=== PATIENT | female | born 1950 | race Caucasian/White ===

== ENCOUNTER 2020-06-11 11:08 | Inpatient (IN) ==
[2020-06-11] MEDS ORDERED: 0.9 % SODIUM CHLORIDE 1,000 ML IV ONE (11:29)
[2020-06-11] MEDS ORDERED: IPRATROPIUM/ALBUTEROL 3 ML AMPUL.NEB NEB ONE (11:29)
[2020-06-11] MEDS ORDERED: HYDROmorphone 0.5 MG/0.5 ML SYRINGE IV ONE ×2 (11:29→13:04)
[2020-06-11] MEDS ORDERED: BENZONATATE 100 MG CAPSULE PO ONE (11:29)
[2020-06-11] MEDS ORDERED: methylPREDNISolone SOD SUCC 125 MG/2 ML VIAL IV ONE (11:29)
--- NOTE | 2020-06-11 11:34 | Emergency Department Note ---
SOB HPI General Chief Complaint: Shortness of Breath/Dyspnea Stated Complaint: SOB Time Seen by Provider: 06/11/20 11:17 Source: patient Mode of arrival: wheelchair Limitations: no limitations History of Present Illness HPI Narrative: Narrative: 70-year-old female patient presents emergency department chief complaint of respiratory distress x3 days. Patient has known history of COPD and is currently prescribed nebulizer that she has been taking a bit more frequently. She also mentions she takes daily prednisone. She denies any known exposure to the novel coronavirus. She denies any other sick contacts at home. Patient also complains of exquisite low back pain. She mentions falling approximately 3 weeks ago. She tells me she was evaluated in the emergency department and was told she fractured "the big bone in my spine". However, I do not have a note or imaging to review. ROS: Denies systemic illness, fever, sweats, chills. Denies headaches, tinnitus, or vision changes. Admits to runny nose, sinus congestion, and productive cough. Denies retrosternal chest pain or palpitations. Denies abdominal pain, nausea, vomiting, or diarrhea. Denies dysuria, hematuria, urinary frequency, or urinary urgency. Admits to generalized weakness. Related Data Home Medications Medication Instructions Recorded Confirmed albuterol sulfate 90 mcg/actuation 2 puff INHALATION .Q6-8H PRN g 04/09/17 04/18/17 aerosol inhaler levothyroxine 200 mcg tablet 200 mcg PO QDAY 04/09/17 04/18/17 lovastatin 20 mg tablet 20 mg PO QPM 04/09/17 04/18/17 paroxetine HCl 10 mg tablet 10 mg PO QDAY 04/09/17 04/18/17 paroxetine HCl 40 mg tablet 40 mg PO QDAY 04/09/17 04/18/17 Previous Rx's Medication Instructions Recorded imipramine HCl 25 mg tablet 25 mg PO BID #60 tab 04/18/17 Allergies Allergy/AdvReac Type Severity Reaction Status Date / Time No Known Drug Allergies Allergy Verified 06/11/20 11:08 Review of Systems ROS ROS Narrative: Narrative: All systems ED: reviewed and negative except as stated. [facility] Narrative Patient History Narrative: Narrative: Medical/Surgical/Family History All Active Problems (Updated 06/11/20 @ 14:38 by Jim Owens PA-C) Acute respiratory distress (Acute) Bilateral pneumonia (Acute) Low back pain (Acute) COPD (chronic obstructive pulmonary disease) (Acute) Depression (Chronic) Abnormal mammogram (Chronic) Epidermoid cyst (Chronic) 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) Upper respiratory infection (Chronic) Viral pharyngitis (Chronic) Carpal tunnel syndrome (Chronic) Chronic depression (Chronic) Depressive disorder (Chronic) Obesity (Chronic) Mixed hyperlipidemia (Chronic) Vitamin D deficiency (Chronic) Hypothyroidism (Chronic) Herpes simplex of female genitalia (Chronic) Viral gastroenteritis (Chronic) Urinary incontinence (Chronic) Medical History (Updated 06/11/20 @ 14:38 by Jim Owens PA-C) Abnormal mammogram (Chronic) Carpal tunnel syndrome (Chronic) CHF (congestive heart failure) (Acute) Chronic depression (Chronic) COPD (chronic obstructive pulmonary disease) (Acute) Depression (Chronic) Depressive disorder (Chronic) Epidermoid cyst (Chronic) hand Fibrosis of lung (Chronic) Herpes simplex of female genitalia (Chronic) Hypothyroidism (Chronic) Interstitial pneumonia (Chronic) Mixed hyperlipidemia (Chronic) Obesity (Chronic) Pulmonary fibrosis (Acute) Upper respiratory infection (Chronic) Urinary incontinence (Chronic) Viral gastroenteritis (Chronic) Viral pharyngitis (Chronic) Vitamin D deficiency (Chronic) Surgical History History of cholecystectomy (Chronic) S/P hysterectomy (Acute) S/P tonsillectomy (Acute) Family History Father Stroke Mother Malignant neoplastic disease ovarian and blood Hypertensive disorder Other Kidney stone Social History Smoking Status: Former smoker Alcohol Intake Frequency: does not drink Substance Use: does not use Exam Narrative Narrative: Narrative: General Limitations: no limitations General appearance: Present other (Well-developed, well-nourished, acutely ill- appearing, obese 70-year-old female patient laying semirecumbent on the [facility] room gurney. She is in obvious respiratory distress. She is speaking in broken sentences. She is tachypneic with respiratory rate of 25. No nasal flaring. No accessory muscle use. She is afebrile, tachycardic with a heart rate of 103, her blood pressure is normal. SPO2 is normal 95%. Patient is on 2 L of oxygen via nasal cannula.) Head Head: Present normocephalic Eye Eye: Present normal appearance, PERRL and EOMI; Absent scleral icterus and conjunctival injection ENT ENT: Present normal oropharynx and mucous membranes moist Neck Neck: Present trachea midline; Absent lymphadenopathy and thyromegaly Chest Chest: Present symmetric chest wall rise Respiratory Respiratory: Present respiratory distress, wheezes, prolonged expiratory phase and decreased breath sounds (Considerable inspiratory and expiratory rhonchi and wheezing heard throughout the chest.); Absent normal lung sounds bilaterally, rales/crackles, stridor and accessory muscle use Cardiovascular Cardiovascular: Present regular rate and normal rhythm; Absent systolic murmur and diastolic murmur Adbominal Abdominal: Present soft; Absent distention, tenderness, guarding, rebound, rigidity, organomegaly and mass Extremities Extremities: Present normal inspection, full ROM and normal capillary refill; Absent pedal edema Back Back: Present normal inspection, full ROM and L-S tenderness Neurological Neurological: Present alert and oriented X3 Psychiatric Psychiatric: Present normal affect and anxious Skin Skin: Present warm (WNL), dry and normal color Course Course Course Narrative: The differential diagnosis of shortness of breath in the adult patient is large and very complex. It includes the following conditions: Life threatening upper airway causes: Tracheal foreign objects, angioedema, anaphylaxis, infections of the pharynx and neck, and airway trauma. Life-threatening pulmonary causes: PE, COPD, asthma, pneumothorax, pulmonary infections, acute respiratory distress syndrome (ARDS), direct pulmonary injury, pulmonary hemorrhage, e-cigarette/vaping associated lung injury (EVALI). Life-threatening cardiac causes: Acute coronary syndrome (ACS), decompensated heart failure, cardiomyopathy, cardiac arrhythmia, valvular dysfunction, and cardiac tamponade. Life-threatening neurologic causes: Stroke or neuromuscular diseases. Life-threatening toxic/metabolic causes: Poisonings, salicylate overdose, carbon monoxide poisoning, diabetic ketoacidosis, sepsis, anemia, and acute chest syndrome. Other miscellaneous causes: Lung cancer, pleural effusions, ascites, , massive obesity, hyperventilation/anxiety. Patient has known history of COPD and has been having to use her nebulizer a bit more frequently. She is in obvious respiratory distress currently. I am going to order screening laboratory studies and a portable chest x-ray. Patient was given a DuoNeb treatment now. I am going to provide her Solu-Medrol 125 mg IVP. I will give her benzonatate 200 mg p.o. for cough. Patient is in considerable discomfort with the associated low back pains we will get a treat that with Dilaudid 0.5 mg IVP. Reevaluation(s) Reevaluation #1: Portable chest x-ray showed developing bilateral pneumonia. Radiologist does mention this could be consistent with Covid. Covid swab is still pending. Patient is curb 65 score places her at moderate risk with one- point for increased respiratory rate and one-point for age. I discussed tr eatment option with my collaborating physician (Dr. Morrow) this time is thought best to start the patient on IV antibiotics. Patient was given azithromycin 500 mg and Rocephin 2g IV. Time: 12:49 Reevaluation #2: A review of the patient's diagnostics show the following: CBC WBC 13.6, RBC 3.73, hemoglobin 11.6, hematocrit 35.7, platelets 361. CMP glucose 116, alkaline phosphatase 155, all others normal limits. Lactic acid pending. Procalcitonin 0.10. Upon reevaluation patient is still in considerable respiratory distress. She continues to be tachypneic and is breathing approximately 2830 times a minute. She does complain of worsening pain to her low back. After reviewing all the data I did discuss these findings with the patient. She does have bilateral pneumonia that appeared to be viral. However, her rapid Covid testing was negative. She is going be reswabbed for Covid and sent for confirmation. Due to her worsening symptoms I am going to reach out to our hospitalist (Dr. Valles) to discuss possible admission. Time: 14:00 Reevaluation #3: I was able discuss case at length with Dr. Valles who request the patient be started on BiPAP due to respiratory distress. He mentions starting the patient on remdesivir 200 mg for suspected Covid pneumonia. Knowing this, I ordered the BiPAP and the remdesivir as requested. I also added an ABG to her blood work. At this time patient is going to be admitted to the hospital for presumed Covid pneumonia. All further treatment decisions, modalities, and ultimate patient disposition will be carried out by Dr. Valles. Time: 14:36 Vital Signs Vital signs: Vital Signs Temperature 98.0 F 06/11/20 11:08 Pulse Rate 108 H 06/11/20 11:08 Respiratory Rate 24 H 06/11/20 11:08 Blood Pressure 150/64 06/11/20 11:08 Pulse Oximetry (%) 93 06/11/20 11:08 Temperature 98.0 F 06/11/20 16:05 Pulse Rate 111 H 06/11/20 16:13 Respiratory Rate 46 H 06/11/20 16:13 Blood Pressure 148/109 06/11/20 16:05 Pulse Oximetry (%) 99 06/11/20 16:13 MDM MDM Narrative Medical decision making narrative: Narrative: Lab Data Lab results reviewed: Yes I reviewed the patient's lab results. Result diagrams: 06/11/20 12:04 06/11/20 12:04 Labs: Lab Results 06/11/20 06/11/20 06/11/20 Range/Units 12:03 12:04 12:04 WBC 13.6 H (4.5-11.0) K/mcL RBC 3.73 L (4.00-5.20) M/mcL Hgb 11.6 L (12.0-15.0) g/dL Hct 35.7 L (36.0-48.0) % MCV 95.7 (80.0-100.0) fL MCH 31.1 (26.0-34.0) pg MCHC 32.5 (31.0-36.0) g/dL RDW 12.4 (11.5-14.5) % Plt Count 361 (140-440) K/mcL MPV 9.0 (7.4-10.4) fL Neut % (Auto) 82.1 H (38.0-78.0) % Lymph % (Auto) 9.0 L (15.0-49.0) % [place] % (Auto) 4.0 (1.0-12.0) % Eos % (Auto) 4.4 (0.0-7.0) % Baso % (Auto) 0.5 (0.0-2.0) % Lymph # (Auto) 1.22 L (1.50-4.80) K/mcL [place] # (Auto) 0.54 (0.10-0.90) K/mcL Eos # (Auto) 0.60 (0.00-0.70) K/mcL Baso # (Auto) 0.07 (0.00-0.20) K/mcL Absolute Neutrophils 11.18 H (1.80-8.00) K/mcL VBG Lactic Acid 1.5 (0.5-2.0) mmol/L Sodium 141 (133-145) mmol/L Potassium 3.8 (3.3-5.1) mmol/L Chloride 100 (96-108) mmol/L Carbon Dioxide 29 (22-30) mmol/L Anion Gap 12.0 (8.0-16.0) BUN 18 (8-23) mg/dL Creatinine 0.8 (0.6-1.1) mg/dL GFR Calculation 74 Glucose 116 H (70-105) mg/dL Calcium 9.9 (8.6-10.4) mg/dL Total Bilirubin 0.2 (0.1-1.0) mg/dL AST 13 (<32) U/L ALT 8 (<40) U/L Alkaline Phosphatase 155 H (39-117) U/L Total Protein 7.4 (5.9-8.4) gm/dL Albumin 3.8 (3.2-5.2) gm/dL Globulin 3.6 (2.2-3.7) gm/dL Albumin/Globulin Ratio 1.1 (1.0-2.3) Procalcitonin (<0.10) ng/mL SARS-CoV-2 (PCR) (Negative) 06/11/20 Range/Units 12:04 WBC (4.5-11.0) K/mcL RBC (4.00-5.20) M/mcL Hgb (12.0-15.0) g/dL Hct (36.0-48.0) % MCV (80.0-100.0) fL MCH (26.0-34.0) pg MCHC (31.0-36.0) g/dL RDW (11.5-14.5) % Plt Count (140-440) K/mcL MPV (7.4-10.4) fL Neut % (Auto) (38.0-78.0) % Lymph % (Auto) (15.0-49.0) % [place] % (Auto) (1.0-12.0) % Eos % (Auto) (0.0-7.0) % Baso % (Auto) (0.0-2.0) % Lymph # (Auto) (1.50-4.80) K/mcL [place] # (Auto) (0.10-0.90) K/mcL Eos # (Auto) (0.00-0.70) K/mcL Baso # (Auto) (0.00-0.20) K/mcL Absolute Neutrophils (1.80-8.00) K/mcL VBG Lactic Acid (0.5-2.0) mmol/L Sodium (133-145) mmol/L Potassium (3.3-5.1) mmol/L Chloride (96-108) mmol/L Carbon Dioxide (22-30) mmol/L Anion Gap (8.0-16.0) BUN (8-23) mg/dL Creatinine (0.6-1.1) mg/dL GFR Calculation Glucose (70-105) mg/dL Calcium (8.6-10.4) mg/dL Total Bilirubin (0.1-1.0) mg/dL AST (<32) U/L ALT (<40) U/L Alkaline Phosphatase (39-117) U/L Total Protein (5.9-8.4) gm/dL Albumin (3.2-5.2) gm/dL Globulin (2.2-3.7) gm/dL Albumin/Globulin Ratio (1.0-2.3) Procalcitonin 0.10 H (<0.10) ng/mL SARS-CoV-2 (PCR) Negative (Negative) Radiology Data Radiology results reviewed: Yes I reviewed the patient's radiology results. Radiology results narrative: Ordering Physician: Jim Owens PA-C Date of Service: 06/11/20 Procedure(s): XR chest 1V portable Accession Number(s): [id number] INDICATION: Worsening SOB. TECHNIQUE: AP portable semiupright chest x-ray COMPARISON: Previous chest x-ray dated 04/25/2008 FINDINGS: Lungs:Diffuse pulmonary parenchymal infiltrates, right worse than left. Infiltrates are interstitial and reticular. Etiology is not certain. Infection is suspected and covid pneumonia is possible. There is no parenchymal consolidation. Findings are not typical of congestive heart failure. Follow-up radiographs recommended. Heart, vascular:No significant cardiomegaly. Pulmonary vascularity is normal. No pulmonary edema or pulmonary congestion Mediastinum, mainor:No mediastinal widening. No hilar mass Pleura:No pleural fluid. No pleural-based mass or calcification Skeletal:Negative. IMPRESSION: 1. Bilateral interstitial infiltrates 2. Findings are consistent with pneumonia and covid pneumonia is possible Interpreted and Authenticated by: Harmeet Manzo 06/11/20 Discharge Plan Patient/Caregiver Discharge Instructions Pt seen by TESTING PROJECTS ADMINISTRATOR/PA only: Yes Clinical Impression: Acute respiratory distress COPD (chronic obstructive pulmonary disease) Qualifiers: COPD type: unspecified COPD Qualified Code(s): J44.9 - Chronic obstructive pulmonary disease, unspecified Bilateral pneumonia Qualifiers: Pneumonia type: due to unspecified organism Lung location: unspecified part of lung Qualified Code(s): J18.9 - Pneumonia, unspecified organism Low back pain Qualifiers: Chronicity: acute Back pain laterality: unspecified Sciatica presence: without sciatica Qualified Code(s): M54.5 - Low back pain Patient Disposition: Xfer As Inpt ([facility]) Condition: Fair Discharge Date/Time: 06/11/20 15:53
--- NOTE | 2020-06-11 12:05 | XRay Report ---
INDICATION: Worsening SOB. TECHNIQUE: AP portable semiupright chest x-ray COMPARISON: Previous chest x-ray dated 04/25/2008 FINDINGS: Lungs:Diffuse pulmonary parenchymal infiltrates, right worse than left. Infiltrates are interstitial and reticular. Etiology is not certain. Infection is suspected and covid pneumonia is possible. There is no parenchymal consolidation. Findings are not typical of congestive heart failure. Follow-up radiographs recommended. Heart, vascular:No significant cardiomegaly. Pulmonary vascularity is normal. No pulmonary edema or pulmonary congestion Mediastinum, mainor:No mediastinal widening. No hilar mass Pleura:No pleural fluid. No pleural-based mass or calcification Skeletal:Negative. IMPRESSION: 1. Bilateral interstitial infiltrates 2. Findings are consistent with pneumonia and covid pneumonia is possible Interpreted and Authenticated by: Harmeet Manzo 06/11/20
[2020-06-11 12:37] LABS: Basophils # (Auto) 0.07 K/mcL (0.00-0.20); Basophils % (Auto) 0.5 % (0.0-2.0); Eosinophils % (Auto) 4.4 % (0.0-7.0); Hematocrit 35.7 % (36.0-48.0); Hemoglobin 11.6 g/dL (12.0-15.0); Lymphocytes # (Auto) 1.22 K/mcL (1.50-4.80); Mean Cell Volume 95.7 fL (80.0-100.0); Mean Corpuscular HGB Conc 32.5 g/dL (31.0-36.0); Monocytes # (Auto) 0.54 K/mcL (0.10-0.90); Neutrophils % (Auto) 82.1 % (38.0-78.0); Platelet Count 361 K/mcL (140-440); RBC 3.73 M/mcL (4.00-5.20); Red Cell Distribution Width 12.4 % (11.5-14.5); WBC 13.6 K/mcL (4.5-11.0)
[2020-06-11] MEDS ORDERED: cefTRIAXone 2 GM in DEXTROSE 5% IN WATER 50 ML IV ONE (12:44)
[2020-06-11] MEDS ORDERED: AZITHROMYCIN 500 MG in DEXTROSE 5% IN WATER 250 ML IV ONE (12:44)
[2020-06-11 13:05] LABS: ALT/SGPT 8 U/L (<40); AST/SGOT 13 U/L (<32); Albumin 3.8 gm/dL (3.2-5.2); Albumin/Globulin Ratio 1.1 (1.0-2.3); Alkaline Phosphatase 155 U/L (39-117); Bilirubin,Total 0.2 mg/dL (0.1-1.0); Blood Urea Nitrogen 18 mg/dL (8-23); Calcium 9.9 mg/dL (8.6-10.4); Carbon Dioxide 29 mmol/L (22-30); Chloride 100 mmol/L (96-108); Globulin 3.6 gm/dL (2.2-3.7); Glomerular Filtration Rate 74; Glucose 116 mg/dL (70-105)
[2020-06-11 13:19] LABS: COVID-19 (RAPID/ABBOTT) Negative (Negative)
[2020-06-11] MEDS ORDERED: REMDESIVIR 200 MG in 0.9 % SODIUM CHLORIDE 250 ML IV ONE ×2 (14:33→16:00)
--- NOTE | 2020-06-11 14:43 | Internal Med History&Physical ---
HPI History of Present Illness Patient information: Note initiated : 06/11/20 at 2:40 pm Service Date, if different from initiated Date: [] Patient: Rea Norris a 70 y/o F admitted on for Shortness of breath. Chief Complaint: Shortness of breath History of present illness: Ms. Norris is a 70 year old F with a history of oxygen dependent COPD who lives with her son presents to the ER with worsening shortness of breath that evolved over the last 3 days. Her symptoms have progressed from dyspnea on moderate exertion to extreme shortness of breath even at rest. Patient has not been able to function or carry out her ADLs over the last couple of days , she has been trying to use her inhalers without any improvement in her symptoms. She is normally on 2 L home oxygen for COPD and increasing oxygen did not help her symptoms. She denies associated fever but endorses productive sputum. She denies rash, headache but endorses to myalgia. She denies sick contacts. She lives with her son who was not experiencing any symptoms of URI. Initial work-up in the ER was consistent with bilateral chest infiltrates/hypoxic respiratory failure along with increased work of breathing. White count 13.6, respiratory rate 40/tachycardia at 110. She was rapidly started on noninvasive ventilation for increased work of breathing and impending respiratory failure. COVID-19 test was sent. Patient was initiated on empiric remdesivir/antibiotic coverage. Cultures were drawn Subsequently hospitalist service was consulted for admission At the time of my evaluation patient is on NIV. She feels a lot better and respiratory rate has come down to mid 20s. Sats improved. She was unable to provide a detailed history was was able to participate in review of systems. Appears anxious. ABG reviewed 7.44/46/75 on FiO2 25% Review of systems A 10 point review system was performed and is negative except for ones discussed above PFSH PFSH All Active Problems (Updated 06/11/20 @ 14:38 by Jim Owens PA-C) Acute respiratory distress (Acute) Bilateral pneumonia (Acute) Low back pain (Acute) COPD (chronic obstructive pulmonary disease) (Acute) Depression (Chronic) Abnormal mammogram (Chronic) Epidermoid cyst (Chronic) 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) Upper respiratory infection (Chronic) Viral pharyngitis (Chronic) Carpal tunnel syndrome (Chronic) Chronic depression (Chronic) Depressive disorder (Chronic) Obesity (Chronic) Mixed hyperlipidemia (Chronic) Vitamin D deficiency (Chronic) Hypothyroidism (Chronic) Herpes simplex of female genitalia (Chronic) Viral gastroenteritis (Chronic) Urinary incontinence (Chronic) Medical History (Updated 06/11/20 @ 14:38 by Jim Owens PA-C) Abnormal mammogram (Chronic) Carpal tunnel syndrome (Chronic) CHF (congestive heart failure) (Acute) Chronic depression (Chronic) COPD (chronic obstructive pulmonary disease) (Acute) Depression (Chronic) Depressive disorder (Chronic) Epidermoid cyst (Chronic) hand Fibrosis of lung (Chronic) Herpes simplex of female genitalia (Chronic) Hypothyroidism (Chronic) Interstitial pneumonia (Chronic) Mixed hyperlipidemia (Chronic) Obesity (Chronic) Pulmonary fibrosis (Acute) Upper respiratory infection (Chronic) Urinary incontinence (Chronic) Viral gastroenteritis (Chronic) Viral pharyngitis (Chronic) Vitamin D deficiency (Chronic) Surgical History History of cholecystectomy (Chronic) S/P hysterectomy (Acute) S/P tonsillectomy (Acute) Family History Father Stroke Mother Malignant neoplastic disease ovarian and blood Hypertensive disorder Other Kidney stone Social History (Updated 04/18/17 @ 15:03 by Alfred Herring MD) smoking status: Former smoker alcohol intake frequency: does not drink substance use type: does not use MEDS/ALLERGIES Home Medications and Allergies Home Medications Medication Instructions Recorded Confirmed Type albuterol sulfate 90 mcg/actuation 2 puff INHALATION .Q6-8H PRN g 04/09/17 04/18/17 History aerosol inhaler levothyroxine 200 mcg tablet 200 mcg PO QDAY 04/09/17 04/18/17 History lovastatin 20 mg tablet 20 mg PO QPM 04/09/17 04/18/17 History paroxetine HCl 10 mg tablet 10 mg PO QDAY 04/09/17 04/18/17 History paroxetine HCl 40 mg tablet 40 mg PO QDAY 04/09/17 04/18/17 History imipramine HCl 25 mg tablet 25 mg PO BID #60 tab 04/18/17 04/18/17 Rx Allergies Allergy/AdvReac Type Severity Reaction Status Date / Time No Known Drug Allergies Allergy Verified 06/11/20 18:39 EXAM Constitutional Vitals: Temp Pulse Resp BP Pulse Ox 98.0 F 107 H 39 H 150/77 94 06/11/20 11:08 06/11/20 14:32 06/11/20 12:32 06/11/20 14:32 06/11/20 14:32 Anxious currently on noninvasive mechanical ventilation Head normocephalic Oral cavity moist No ear nose discharge Eye movement symmetrical Neck supple no lymphadenopathy S1-S2 tachycardia regular Labored breathing, expiratory rhonchi. Tachypnea 30 Nondistended nontender abdomen Lower extremity no cyanosis clubbing or joint swelling Skin no suspicious lesion Psych no hallucinations Neuro normal higher function DATA Data Completed and Pending Labs: Labs from last 24 hours 06/11/20 06/11/20 06/11/20 12:04 12:04 12:04 WBC 13.6 H RBC 3.73 L Hgb 11.6 L Hct 35.7 L MCV 95.7 MCH 31.1 MCHC 32.5 RDW 12.4 Plt Count 361 MPV 9.0 Neut % (Auto) 82.1 H Lymph % (Auto) 9.0 L [place] % (Auto) 4.0 Eos % (Auto) 4.4 Baso % (Auto) 0.5 Lymph # (Auto) 1.22 L [place] # (Auto) 0.54 Eos # (Auto) 0.60 Baso # (Auto) 0.07 Absolute Neutrophils 11.18 H VBG Lactic Acid Sodium 141 Potassium 3.8 Chloride 100 Carbon Dioxide 29 Anion Gap 12.0 BUN 18 Creatinine 0.8 GFR Calculation 74 Glucose 116 H Calcium 9.9 Total Bilirubin 0.2 AST 13 ALT 8 Alkaline Phosphatase 155 H Total Protein 7.4 Albumin 3.8 Globulin 3.6 Albumin/Globulin Ratio 1.1 Procalcitonin 0.10 H SARS-CoV-2 (PCR) Negative 06/11/20 12:03 WBC RBC Hgb Hct MCV MCH MCHC RDW Plt Count MPV Neut % (Auto) Lymph % (Auto) [place] % (Auto) Eos % (Auto) Baso % (Auto) Lymph # (Auto) [place] # (Auto) Eos # (Auto) Baso # (Auto) Absolute Neutrophils VBG Lactic Acid 1.5 Sodium Potassium Chloride Carbon Dioxide Anion Gap BUN Creatinine GFR Calculation Glucose Calcium Total Bilirubin AST ALT Alkaline Phosphatase Total Protein Albumin Globulin Albumin/Globulin Ratio Procalcitonin SARS-CoV-2 (PCR) A/P Narrative A/P Narrative: * Acute respiratory failure with hypoxemia AA gradient- secondary to bilateral pneumonia. High likelihood COVID-19. Continue noninvasive mechanical ventilation/serial ABG/imaging. Pulmonary toilet * Bilateral pneumonia likely Covid versus community-acquired. Continue contact precautions. Start empiric antibiotics/remdesivir/dexamethasone. CRP/ferritin/coag markers/thrombosis prophylaxis * Acute exacerbation of COPD secondary to above. Continue bronchodilators/steroids/noninvasive ventilation and supplemental oxygen * Severe sepsis secondary to above. Continue antibiotic coverage, venous lactate trending, pancultures and management per guidelines. White count 13.6 * History of hypothyroid continue thyroxine * Hyperlipidemia continue statin * Anxiety disorder continue paroxetine * Prophylaxis Heparin Plan * Inpatient critical care admission requiring aggressive ventilation for hypoxic respite failure. Initial [place] 2 score 19 * Remdesivir/dexamethasone/antibiotic coverage * Noninvasive mechanical ventilation * Serial blood gas/chest imaging * Pre-existing medical condition management as above * Contact the question COVID-19 Patient critically ill requiring transfer to PCU/noninvasive ventilation. Time spent history physical in excess of 70 minutes. Additional 35 minutes spent on management of hypoxic respiratory failure/noninvasive ventilation/review of blood gases/imaging/treatment Time Spent With Patient Time: Total time spent is greater than 50% in coordination of care (as documented) at patient's floor/unit and/or counseling patient:
[2020-06-11] MEDS ORDERED: POLYETHYLENE GLYCOL 3350 17 GM PACKET PO PRN (16:27)
[2020-06-11] MEDS ORDERED: hydrALAZINE 20 MG/ML VIAL IV PRN (16:27)
[2020-06-11] MEDS ORDERED: METOPROLOL TARTRATE 5 MG/5 ML VIAL IV PRN (16:27)
[2020-06-11] MEDS ORDERED: VANCOMYCIN PER PHARMACY IV SCH (16:27)
[2020-06-11] MEDS ORDERED: POTASSIUM CHLORIDE 20 MEQ PACKET PO PRN (16:27)
[2020-06-11] MEDS ORDERED: MAGNESIUM SULFATE 2 GM/50 ML BAG IV PRN (16:27)
[2020-06-11] MEDS ORDERED: BISACODYL 10 MG SUPP.RECT PR PRN (16:27)
[2020-06-11] MEDS ORDERED: POTASSIUM CHLORIDE 40 MEQ in DEXTROSE 5% IN WATER 500 ML IV PRN (16:27)
[2020-06-11] MEDS ORDERED: ONDANSETRON 4 MG ODT TABLET SL PRN (16:27)
[2020-06-11] MEDS ORDERED: ONDANSETRON 4 MG/2 ML VIAL IV PRN (16:27)
[2020-06-11] MEDS: 0.9 % SODIUM CHLORIDE 1,000 ML IV SCH (17:07)
[2020-06-11] MEDS: ACETAMINOPHEN 650 MG/65 ML BAG IV PRN (17:13)
[2020-06-11] MEDS: PIPERACILLIN SODIUM/TAZOBACTAM 3.375 GM in DEXTROSE 5% IN WATER 50 ML IV SCH ×2 (17:32→23:56)
[2020-06-11] MEDS ORDERED: LORazepam 2 MG/ML VIAL IV ONE (18:43)
[2020-06-11] MEDS: HYDROmorphone 0.5 MG/0.5 ML SYRINGE IV PRN (19:29)
[2020-06-11] MEDS: VANCOMYCIN 1,000 MG in 0.9 % SODIUM CHLORIDE 250 ML IV SCH (19:59)
[2020-06-11] MEDS: SENNOSIDES/DOCUSATE SODIUM 1 TAB TABLET PO SCH (21:11)
[2020-06-11] MEDS: BUDESONIDE 1 PUFF INHALER INH SCH (21:11)
[2020-06-11] MEDS: DOCUSATE SODIUM 100 MG CAPSULE PO SCH (21:32)
[2020-06-11] MEDS: HEPARIN 5,000 UNIT/ML VIAL SQ SCH (21:32)
[2020-06-11] MEDS: 0.9 % SODIUM CHLORIDE 10 ML SYRINGE IV SCH (21:33)
[2020-06-11] MEDS: ACETAMINOPHEN 325 MG TABLET PO PRN (23:39)
[2020-06-11] MEDS: MELATONIN 3 MG TABLET PO PRN (23:40)
[2020-06-12] MEDS: HYDROmorphone 0.5 MG/0.5 ML SYRINGE IV PRN ×4 (00:08→20:37)
[2020-06-12] MEDS: BENZONATATE 100 MG CAPSULE PO PRN ×2 (03:12→10:58)
[2020-06-12] MEDS: PIPERACILLIN SODIUM/TAZOBACTAM 3.375 GM in DEXTROSE 5% IN WATER 50 ML IV SCH ×3 (05:20→17:53)
[2020-06-12] MEDS: 0.9 % SODIUM CHLORIDE 10 ML SYRINGE IV SCH ×3 (06:00→21:50)
[2020-06-12 07:00] LABS: Basophils # (Auto) 0.01 K/mcL (0.00-0.20); Basophils % (Auto) 0.1 % (0.0-2.0); Eosinophils # (Auto) 0 K/mcL (0.00-0.70); Eosinophils % (Auto) 0 % (0.0-7.0); Hematocrit 33.9 % (36.0-48.0); Hemoglobin 10.9 g/dL (12.0-15.0); Lymphocytes # (Auto) 1.62 K/mcL (1.50-4.80); Lymphocytes % (Auto) 12.9 % (15.0-49.0); Mean Cell Volume 94.4 fL (80.0-100.0); Mean Corpuscular HGB Conc 32.2 g/dL (31.0-36.0); Mean Platelet Volume 9.6 fL (7.4-10.4); Monocytes # (Auto) 0.62 K/mcL (0.10-0.90); Platelet Count 341 K/mcL (140-440); RBC 3.59 M/mcL (4.00-5.20); Red Cell Distribution Width 12.5 % (11.5-14.5); WBC 12.5 K/mcL (4.5-11.0)
[2020-06-12] MEDS: guaiFENesin/CODEINE 10 ML UDC PO PRN ×3 (07:39→20:37)
[2020-06-12 08:23] LABS: Ferritin 155.5 ng/mL (30.0-400.0)
--- NOTE | 2020-06-12 09:25 | Internal Med Progress Note ---
SUBJECTIVE Subjective Patient information: Note initiated : 06/12/20 at 9:18 am Service Date, if different from initiated Date: [] Patient: Rea Norris a 70 y/o F admitted on 06/11/20 for Shortness of breath. Chief Complaint: Ms. Norris is a 70 year old F with a history of oxygen dependent COPD who lives with her son presents to the ER with worsening shortness of breath that evolved over the last 3 days. Her symptoms have progressed from dyspnea on moderate exertion to extreme shortness of breath even at rest. Patient has not been able to function or carry out her ADLs over the last couple of days , she has been trying to use her inhalers without any improvement in her symptoms. She is normally on 2 L home oxygen for COPD and increasing oxygen did not help her symptoms. She denies associated fever but endorses productive sputum. She denies rash, headache but endorses to myalgia. She denies sick contacts. She lives with her son who was not experiencing any symptoms of URI. Initial work-up in the ER was consistent with bilateral chest infiltrates/hypoxic respiratory failure along with increased work of breathing. White count 13.6, respiratory rate 40/tachycardia at 110. She was rapidly started on noninvasive ventilation for increased work of breathing and impending respiratory failure. COVID-19 test was sent. Patient was initiated on empiric remdesivir/antibiotic coverage. Cultures were drawn Subsequently hospitalist service was consulted for admission At the time of my evaluation patient is on NIV. She feels a lot better and respiratory rate has come down to mid 20s. Sats improved. She was unable to provide a detailed history was was able to participate in review of systems. Appears anxious. ABG reviewed 7.44/46/75 on FiO2 25% 06/12-patient tach improved. Transiently off BiPAP however tolerated noninvasive ventilation quite well overnight. Doing better. Clinical improvement noted with downtrending white count at 12.5, improved tachycardia to mid 90s/improved tachypnea down to low 20s. Complains of generalized lower back pain/hip pain following falls recently. Pelvis x-ray ordered. Continue COVID-19 contact for questions. Constitutional Vitals: Vital Signs Temp Pulse Resp BP Pulse Ox 98.8 F 94 H 18 159/80 96 06/12/20 08:01 06/12/20 08:01 06/12/20 08:01 06/12/20 08:01 06/12/20 08:01 Period Temp Pulse Resp BP Sys/[place] Pulse Ox Last 24 Hr 97.4 F-98.8 F 66-118 17-46 106-191/52-125 91-100 Intake and Output 06/11/20 06/12/20 06/12/20 21:59 05:59 13:59 Intake Total 191 750 Output Total 3 775 175 Balance 1911 Weight 79.197 kg Alert and improved work of breathing Minimal anxiety Complains of hip and lower back discomfort with restricted motion at hip Intake & Output: Intake & Output 06/11/20 06/12/20 06/12/20 21:59 05:59 13:59 Intake Total 1914 750 Output Total 3 775 175 Balance 1911 Weight 79.197 kg Intake: IV 191 100 Sodium Chloride 0.9% 1,000 ml @ 1000 Wide Open IV BOLUS ONE Rx#: [id number] Zithromax 500 mg In Dextrose 5% 250 in Water 250 ml @ 250 mls/hr IV ONCE ONE Rx#:[id number] Zosyn 3.375 gm In Dextrose 5% 50 100 in Water 50 ml @ 100 mls/hr IV Q6H COUNTS INCLUDE 234 BEDS AT THE [facility] Rx#:[id number] Veklury 200 mg In Sodium 250 Chloride 0.9% 250 ml @ 500 mls/ hr IV ONCE ONE Rx#:[id number] Vancomycin 1,000 mg In Sodium 250 Chloride 0.9% 250 ml @ 250 mls/ hr IV Q12H COUNTS INCLUDE 234 BEDS AT THE [facility] Rx#:[id number] Rocephin 2 gm In Dextrose 5% in 50 Water 50 ml @ 100 mls/hr IV ONCE ONE Rx#:[id number] Oral 650 Output: Urine Catheter Amount 775 Void Amount 175 # of times incontinent of urine 3 Other: Urine Appearance Cloudy Clear Small Blood Clots Fem Cath Cloudy Cloudy Uretheral (Oscar) Cloudy Urine Color Pale Bright Yellow Fem Cath Bright Yellow Bright Yellow Uretheral (Oscar) Straw # Bowel Movements 0 OBJ DATA Labs CBC & Chem 7: 06/12/20 04:40 06/11/20 12:04 Labs: Abnormal Lab Results 06/12/20 06/12/20 06/11/20 04:40 04:40 12:04 WBC 12.5 H RBC 3.59 L Hgb 10.9 L Hct 33.9 L Neut % (Auto) 82.0 H Lymph % (Auto) 12.9 L Lymph # (Auto) Absolute Neutrophils 10.26 H D-Dimer 1.04 H Glucose Alkaline Phosphatase Procalcitonin 0.10 H 06/11/20 06/11/20 12:04 12:04 WBC 13.6 H RBC 3.73 L Hgb 11.6 L Hct 35.7 L Neut % (Auto) 82.1 H Lymph % (Auto) 9.0 L Lymph # (Auto) 1.22 L Absolute Neutrophils 11.18 H D-Dimer Glucose 116 H Alkaline Phosphatase 155 H Procalcitonin Meds: Medications Acetaminophen (Tylenol) 650 mg PO Q4-6HP PRN; Protocol PRN Reason: Per Pain Protocol/Fever > 101 Last Admin: 06/11/20 23:39 Dose: 650 mg Documented by: Benzonatate (Tessalon) 100 mg PO TIDP PRN PRN Reason: Cough Last Admin: 06/12/20 03:12 Dose: 100 mg Documented by: Bisacodyl (Dulcolax) 10 mg [place] Q2-3DAYS PRN PRN Reason: Constipation Budesonide (Pulmicort) 2 puff INH BID COUNTS INCLUDE 234 BEDS AT THE [facility] Last Admin: 06/11/20 21:11 Dose: Not Given Documented by: Dexamethasone (Decadron) 6 mg PO DAILY COUNTS INCLUDE 234 BEDS AT THE [facility] Docusate Sodium (Colace) 100 mg PO BID COUNTS INCLUDE 234 BEDS AT THE [facility] Last Admin: 06/11/20 21:32 Dose: 100 mg Documented by: Guaifenesin/Codeine Phosphate (Robitussin Ac) 10 ml PO Q4HP PRN PRN Reason: Cough Last Admin: 06/12/20 07:39 Dose: 10 ml Documented by: Heparin Sodium (Porcine) (Heparin) 5,000 unit SQ Q12 COUNTS INCLUDE 234 BEDS AT THE [facility] Last Admin: 06/11/20 21:32 Dose: 5,000 unit Documented by: Hydralazine HCl (Apresoline) 10 mg IV Q4-6HP PRN PRN Reason: Hypertension Last Admin: 06/11/20 16:45 Dose: 10 mg Documented by: Hydromorphone HCl (Dilaudid) 0.25 mg IV Q2HP PRN; Protocol PRN Reason: Per Pain Protocol Last Admin: 06/12/20 05:20 Dose: 0.25 mg Documented by: Azithromycin 500 mg/ Dextrose 250 mls @ 250 mls/hr IV DAILY@1000 COUNTS INCLUDE 234 BEDS AT THE [facility]; Protocol Stop: 06/14/20 10:59 REMDESIVIR 100 mg/ Sodium (Chloride) 250 mls @ 500 mls/hr IV DAILY@1200 EV Stop: 06/15/20 12:29 Potassium Chloride 40 meq/ (Dextrose) 520 mls @ 130 mls/hr IV UD PRN PRN Reason: K+ = or < 3.5 Acetaminophen (Ofirmev) 650 mg in 65 mls @ 130 mls/hr IV Q6HP PRN; Protocol PRN Reason: Per Pain Protocol/Fever > 101 Last Infusion: 06/11/20 17:52 Dose: Infused Documented by: Magnesium Sulfate (Magnesium Sulfate) 2 gm in 50 mls @ 50 mls/hr IV UD PRN PRN Reason: MG = or < 1.7 Sodium Chloride (Sodium Chloride 0.9%) 1,000 mls @ 50 mls/hr IV .Q20H COUNTS INCLUDE 234 BEDS AT THE [facility] Stop: 06/14/20 04:26 Last Admin: 06/11/20 17:07 Dose: 50 mls/hr Documented by: Piperacillin Sod/Tazobactam (Sod 3.375 gm/ Dextrose) 50 mls @ 100 mls/hr IV Q6H COUNTS INCLUDE 234 BEDS AT THE [facility]; Protocol Last Infusion: 06/12/20 05:50 Dose: Infused Documented by: Vancomycin HCl 1,000 mg/ (Sodium Chloride) 250 mls @ 250 mls/hr IV Q12H EV Last Infusion: 06/11/20 20:59 Dose: Infused Documented by: Iron Carb/Multivit/Communications Writer/Folic Acid (Multivitamin W/Minerals) 1 tab PO DAILY COUNTS INCLUDE 234 BEDS AT THE [facility] Lorazepam (Ativan) 0.25 mg IV Q8HP PRN PRN Reason: ANXIETY/SEDATION Melatonin (Melatonin 3mg Tablet) 3 mg PO HSP PRN PRN Reason: Insomnia Last Admin: 06/11/20 23:40 Dose: 3 mg Documented by: Metoprolol Tartrate (Lopressor) 5 mg IV Q5M PRN PRN Reason: Heart Rate > 140 bpm Mupirocin (Bactroban Oint 2%) 1 dose NARES BID COUNTS INCLUDE 234 BEDS AT THE [facility] Ondansetron HCl (Zofran Odt) 4 mg SL Q4-6HP PRN; Protocol PRN Reason: Nausea And Vomiting Ondansetron HCl (Zofran) 4 mg IV Q4-6HP PRN; Protocol PRN Reason: Nausea And Vomiting Polyethylene Glycol (Miralax) 17 gm PO DAILYP PRN PRN Reason: Constipation Potassium Chloride (Klor-Con) 40 meq PO DAILYP PRN PRN Reason: K+ < 3.5 Senna/Docusate Sodium (Senna Plus Tablet) 1 tab PO HS EV Last Admin: 06/11/20 21:11 Dose: Not Given Documented by: Sodium Chloride (Saline Flush) 10 ml IV Q8 EV Last Admin: 06/12/20 06:00 Dose: Not Given Documented by: Tiotropium [place] (Spiriva) 18 mcg INH DAILY EV Vancomycin HCl (Vancomycin Per Pharmacy) 1 order IV UD EV; Protocol A/P Narrative A/P Narrative: * Acute respiratory failure with hypoxemia AA gradient-clinically improving on noninvasive ventilation. Now requiring 30% FiO2. Secondary to bilateral pneumonia. Await COVID-19. Serial ABG/interval imaging * Bilateral pneumonia likely Covid versus community-acquired. Continue antibiotics/remdesivir/dexamethasone. * Acute exacerbation of COPD secondary to above. Clinical improvement noted on bronchodilators/steroids/noninvasive ventilation and supplemental oxygen * Severe sepsis secondary to above. Continue antibiotic coverage, venous lactate trending, pancultures and management per guidelines. White count 13.6 * Lower back/hip pain-pelvic imaging * History of hypothyroid continue thyroxine * Hyperlipidemia continue statin * Anxiety disorder continue paroxetine * Prophylaxis Heparin Plan * Wean NIV as tolerated * Remdesivir/dexamethasone/antibiotic coverage * Hip and pelvis imaging * Interval blood gas/chest imaging * Pre-existing medical condition management as above * Contact precautions until COVID-19 testing results available Critical care time spent 35 minutes on management of noninvasive ventilation/review of blood gases/imaging and care coordination Time Spent With Patient Time: Total time spent is greater than 50% in coordination of care (as d ocumented) at patient's floor/unit and/or counseling patient: QUALITY VTE Deep Vein Thrombosis/Pulmonary Embolism Present on Admission: No
[2020-06-12] MEDS ORDERED: IPRATROPIUM/ALBUTEROL 3 ML AMPUL.NEB NEB PRN (09:27)
[2020-06-12] MEDS: BUDESONIDE 1 PUFF INHALER INH SCH ×2 (09:29→21:52)
[2020-06-12] MEDS: TIOTROPIUM BROMIDE 18 MCG INHALANT INH SCH (09:29)
[2020-06-12 09:33] LABS: ALT/SGPT 7 U/L (<40); AST/SGOT 12 U/L (<32); Albumin 3.4 gm/dL (3.2-5.2); Albumin/Globulin Ratio 1.1 (1.0-2.3); Alkaline Phosphatase 123 U/L (39-117); Bilirubin,Direct < 0.2 mg/dL (<0.3); Bilirubin,Total 0.2 mg/dL (0.1-1.0); Blood Urea Nitrogen 15 mg/dL (8-23); Calcium 9.2 mg/dL (8.6-10.4); Carbon Dioxide 26 mmol/L (22-30); Chloride 104 mmol/L (96-108); Glomerular Filtration Rate 87; Glucose 115 mg/dL (70-105); Lactate Dehydrogenase 280 U/L (135-225); Phosphorous 3.1 mg/dL (2.5-4.5); Triglycerides 74 mg/dL (<150); Uric Acid 4.6 mg/dL (2.5-8.0)
[2020-06-12] MEDS: HEPARIN 5,000 UNIT/ML VIAL SQ SCH ×2 (09:37→21:49)
[2020-06-12] MEDS: ACETAMINOPHEN 325 MG TABLET PO PRN (09:37)
[2020-06-12] MEDS: DEXAMETHASONE 4 MG TABLET PO SCH (09:37)
[2020-06-12] MEDS: MULTIVIT,THER IRON,CA,FA & MIN 1 TABLET PO SCH (09:37)
[2020-06-12] MEDS: DOCUSATE SODIUM 100 MG CAPSULE PO SCH ×2 (09:37→21:50)
[2020-06-12] MEDS: VANCOMYCIN 1,000 MG in 0.9 % SODIUM CHLORIDE 250 ML IV SCH ×2 (09:38→21:51)
[2020-06-12] MEDS: MUPIROCIN OINT 2% 22GM NARES SCH ×2 (09:38→22:10)
--- NOTE | 2020-06-12 09:42 | XRay Report ---
INDICATION: Pain TECHNIQUE: AP pelvis COMPARISON: None. FINDINGS: Negative pelvis. No fracture. No lytic lesion. Sacrum and sacroiliac joints are unremarkable. Hips are negative and bilaterally symmetric. There is no hip fracture. No evidence for avascular necrosis. Joint spaces are normal. IMPRESSION: Negative AP pelvis Interpreted and Authenticated by: Harmeet Manzo 06/12/20
[2020-06-12] MEDS ORDERED: FLU VACC QS2020-21(6MOS UP)/PF 60 MCG/0.5 ML SYRINGE IM ONE (10:15)
[2020-06-12] MEDS: AZITHROMYCIN 500 MG in DEXTROSE 5% IN WATER 250 ML IV SCH (10:56)
[2020-06-12] MEDS: REMDESIVIR 100 MG in 0.9 % SODIUM CHLORIDE 250 ML IV SCH (12:11)
[2020-06-12] MEDS: IPRATROPIUM/ALBUTEROL 3 ML AMPUL.NEB NEB PRN (14:04)
[2020-06-12] MEDS: 0.9 % SODIUM CHLORIDE 1,000 ML IV SCH (17:53)
[2020-06-12] MEDS: MELATONIN 3 MG TABLET PO PRN (21:50)
[2020-06-12] MEDS: SENNOSIDES/DOCUSATE SODIUM 1 TAB TABLET PO SCH (21:51)
[2020-06-13] MEDS: PIPERACILLIN SODIUM/TAZOBACTAM 3.375 GM in DEXTROSE 5% IN WATER 50 ML IV SCH ×4 (00:19→17:20)
[2020-06-13] MEDS: BENZONATATE 100 MG CAPSULE PO PRN ×3 (02:12→21:50)
[2020-06-13] MEDS: 0.9 % SODIUM CHLORIDE 10 ML SYRINGE IV SCH ×3 (04:54→21:50)
[2020-06-13 06:40] LABS: Basophils # (Auto) 0.02 K/mcL (0.00-0.20); Basophils % (Auto) 0.2 % (0.0-2.0); Eosinophils # (Auto) 0.01 K/mcL (0.00-0.70); Eosinophils % (Auto) 0.1 % (0.0-7.0); Hematocrit 32.3 % (36.0-48.0); Hemoglobin 10.5 g/dL (12.0-15.0); Lymphocytes # (Auto) 2.47 K/mcL (1.50-4.80); Lymphocytes % (Auto) 22.6 % (15.0-49.0); Mean Cell Volume 93.6 fL (80.0-100.0); Mean Corpuscular HGB Conc 32.5 g/dL (31.0-36.0); Mean Platelet Volume 9.4 fL (7.4-10.4); Monocytes # (Auto) 0.72 K/mcL (0.10-0.90); Monocytes % (Auto) 6.6 % (1.0-12.0); Neutrophils % (Auto) 70.5 % (38.0-78.0); Platelet Count 333 K/mcL (140-440); RBC 3.45 M/mcL (4.00-5.20); Red Cell Distribution Width 12.6 % (11.5-14.5); WBC 10.9 K/mcL (4.5-11.0)
[2020-06-13 07:05] LABS: ALT/SGPT 8 U/L (<40); AST/SGOT 13 U/L (<32); Albumin 3.2 gm/dL (3.2-5.2); Alkaline Phosphatase 120 U/L (39-117); Bilirubin,Direct < 0.2 mg/dL (<0.3); Bilirubin,Total 0.2 mg/dL (0.1-1.0); Blood Urea Nitrogen 21 mg/dL (8-23); Calcium 8.9 mg/dL (8.6-10.4); Carbon Dioxide 27 mmol/L (22-30); Chloride 106 mmol/L (96-108); Globulin 3.1 gm/dL (2.2-3.7); Glomerular Filtration Rate 87; Glucose 101 mg/dL (70-105); Lactate Dehydrogenase 252 U/L (135-225); Phosphorous 3.2 mg/dL (2.5-4.5); Triglycerides 85 mg/dL (<150); Uric Acid 3.7 mg/dL (2.5-8.0)
[2020-06-13] MEDS: BUDESONIDE 1 PUFF INHALER INH SCH ×2 (07:52→21:50)
[2020-06-13] MEDS: TIOTROPIUM BROMIDE 18 MCG INHALANT INH SCH (07:52)
[2020-06-13] MEDS: guaiFENesin/CODEINE 10 ML UDC PO PRN ×2 (08:01→13:31)
[2020-06-13] MEDS: HEPARIN 5,000 UNIT/ML VIAL SQ SCH ×2 (08:01→21:49)
[2020-06-13] MEDS: MULTIVIT,THER IRON,CA,FA & MIN 1 TABLET PO SCH (08:02)
[2020-06-13] MEDS: DEXAMETHASONE 4 MG TABLET PO SCH (08:02)
[2020-06-13] MEDS: DOCUSATE SODIUM 100 MG CAPSULE PO SCH ×2 (08:02→21:50)
[2020-06-13] MEDS: ACETAMINOPHEN 325 MG TABLET PO PRN ×2 (08:02→17:20)
[2020-06-13] MEDS: MUPIROCIN OINT 2% 22GM NARES SCH ×2 (08:32→22:05)
[2020-06-13] MEDS ORDERED: VANCOMYCIN 1,250 MG in 0.9 % SODIUM CHLORIDE 500 ML IV SCH (09:00)
--- NOTE | 2020-06-13 09:22 | XRay Report ---
INDICATION: Interval Change TECHNIQUE: AP portable semiupright chest x-ray COMPARISON: Previous examination dated 06/11/2020 FINDINGS: Lungs:Bilateral interstitial pulmonary parenchymal infiltrates, right worse than left. There is elevation of the right hemidiaphragm. No definite interval change. Findings may be secondary to chronic interstitial disease. Interstitial pneumonia including covid are possible although infiltrates. Atypical Heart, vascular:No significant cardiomegaly. Pulmonary vascularity is normal. No pulmonary edema or pulmonary congestion Mediastinum, mainor:No mediastinal widening. No hilar mass Pleura:No pleural fluid. No pleural-based mass or calcification Skeletal:Negative. IMPRESSION: 1. Interstitial infiltrates, right worse than left 2. No definite interval change since 1210 Interpreted and Authenticated by: Harmeet Manzo 06/13/20
[2020-06-13] MEDS: AZITHROMYCIN 500 MG in DEXTROSE 5% IN WATER 250 ML IV SCH (09:45)
[2020-06-13] MEDS: VANCOMYCIN 1,000 MG in 0.9 % SODIUM CHLORIDE 250 ML IV SCH (11:18)
[2020-06-13] MEDS: IPRATROPIUM/ALBUTEROL 3 ML AMPUL.NEB NEB PRN (12:23)
[2020-06-13] MEDS: REMDESIVIR 100 MG in 0.9 % SODIUM CHLORIDE 250 ML IV SCH (12:52)
[2020-06-13] MEDS: LORazepam 2 MG/ML VIAL IV PRN (14:46)
--- NOTE | 2020-06-13 18:06 | Internal Med Progress Note ---
SUBJECTIVE Subjective Patient information: Note initiated : 06/13/20 at 6:01 pm Service Date, if different from initiated Date: [] Patient: Rea Norris a 70 y/o F admitted on 06/11/20 for Shortness of breath. Chief Complaint: [shortness of breath] Ms. Norris is a 70 year old F with a history of oxygen dependent COPD who lives with her son presents to the ER with worsening shortness of breath that evolved over the last 3 days. Her symptoms have progressed from dyspnea on moderate exertion to extreme shortness of breath even at rest. Patient has not been able to function or carry out her ADLs over the last couple of days , she has been trying to use her inhalers without any improvement in her symptoms. She is normally on 2 L home oxygen for COPD and increasing oxygen did not help her s ymptoms. She denies associated fever but endorses productive sputum. She denies rash, headache but endorses to myalgia. She denies sick contacts. She lives with her son who was not experiencing any symptoms of URI. Initial work-up in the ER was consistent with bilateral chest infiltrates/hypoxic respiratory failure along with increased work of breathing. White count 13.6, respiratory rate 40/tachycardia at 110. She was rapidly started on noninvasive ventilation for increased work of breathing and impending respiratory failure. COVID-19 test was negative. 06/12-patient tach improved. Transiently off BiPAP however tolerated noninvasive ventilation quite well overnight. Doing better. Clinical improvement noted with downtrending white count at 12.5, improved tachycardia to mid 90s/improved tachypnea down to low 20s. Complains of generalized lower back pain/hip pain following falls recently. Pelvis x-ray ordered. Continue COVID- 19 contact for questions. 06/13-COVD PCR negative x2, ordered respiratory panel as chest xray suggestive of viral pneumonia. Sputum cx prelim-mixed oral ashley. Blood cultures-NGTD. MRSA nasal PCR positive. Discontinued Remdesivir, will continue Dexamethasone for now. Deescalate antibiotics to levofloxacin. Removed mcmahan catheter. Overall improvement in respiratory status, coughing a lot but stable oxygen requirement of 2l/min. Constitutional Vitals: Vital Signs Temp Pulse Resp BP Pulse Ox 98.2 F 75 24 H 159/73 98 06/13/20 16:01 06/13/20 16:01 06/13/20 16:01 06/13/20 16:01 06/13/20 16:01 Period Temp Pulse Resp BP Sys/Feldman Pulse Ox Last 24 Hr 97.4 F-98.8 F 75-113 20-35 138-159/62-121 93-99 Intake and Output 06/13/20 06/13/20 06/13/20 05:59 13:59 21:59 Intake Total 1150 1870 Output Total 631 660 Balance 519 1210 Intake & Output: Intake & Output 06/13/20 06/13/20 06/13/20 05:59 13:59 21:59 Intake Total 1150 1870 Output Total 631 660 Balance 519 1210 Intake: IV 350 1050 Zithromax 500 mg In Dextrose 5% 250 in Water 250 ml @ 250 mls/hr IV DAILY@1000 [facility] Rx#:[id number] Zosyn 3.375 gm In Dextrose 5% 100 50 in Water 50 ml @ 100 mls/hr IV Q6H EV Rx#:[id number] Veklury 100 mg In Sodium 250 Chloride 0.9% 250 ml @ 500 mls/ hr IV DAILY@1200 EV Rx#: [id number] Vancomycin 1,000 mg In Sodium 250 Chloride 0.9% 250 ml @ 250 mls/ hr IV Q12H [facility] Rx#:[id number] Vancomycin 1,250 mg In Sodium 500 Chloride 0.9% 500 ml @ 333.3 mls/hr IV Q12H [facility] Rx#: [id number] Oral 800 820 Output: Urine Catheter Amount 630 660 # of times incontinent of urine 1 Other: Meal Breakfast Percent of Meal Consumed 100% Feeding Ability Independent Urine Appearance Clear [place] Uretheral (Mcmahan) Clear Urine Color Dark Yellow [place] Uretheral (Mcmahan) Straw Urine Odor Normal Stool Size Large Stool Color Brown Stool Consistency Liquid [place] # Voids 1 1 # Bowel Movements 0 1 Head Head exam: Present atraumatic and normal inspection Eye Eye exam: Present normal appearance Respiratory Respiratory exam: Absent accessory muscle use and respiratory distress Cardiovascular Cardiovascular exam: Present normal rate and rhythm GI/Abdominal GI/Abdominal exam: Present soft; Absent distended Extremities Exam Extremities exam: Present full ROM and normal inspection Neurological Exam Neurological exam: Present CN II-XII intact and oriented X3 Psychiatric Psychiatric exam: Present normal affect and normal mood Skin Skin exam: Present normal color and warm OBJ DATA Labs CBC & Chem 7: 06/13/20 05:10 06/13/20 05:10 Labs: Abnormal Lab Results 06/13/20 06/13/20 06/13/20 05:10 05:10 05:10 WBC RBC 3.45 L Hgb 10.5 L Hct 32.3 L Neut % (Auto) Lymph % (Auto) Lymph # (Auto) Absolute Neutrophils D-Dimer 0.92 H Glucose Alkaline Phosphatase 120 H Lactate Dehydrogenase 252 H C-Reactive Protein Procalcitonin 06/12/20 06/12/20 06/12/20 04:40 04:40 04:40 WBC 12.5 H RBC 3.59 L Hgb 10.9 L Hct 33.9 L Neut % (Auto) 82.0 H Lymph % (Auto) 12.9 L Lymph # (Auto) Absolute Neutrophils 10.26 H D-Dimer 1.04 H Glucose 115 H Alkaline Phosphatase 123 H Lactate Dehydrogenase 280 H C-Reactive Protein 1.70 H Procalcitonin 06/11/20 06/11/20 06/11/20 12:04 12:04 12:04 WBC 13.6 H RBC 3.73 L Hgb 11.6 L Hct 35.7 L Neut % (Auto) 82.1 H Lymph % (Auto) 9.0 L Lymph # (Auto) 1.22 L Absolute Neutrophils 11.18 H D-Dimer Glucose 116 H Alkaline Phosphatase 155 H Lactate Dehydrogenase C-Reactive Protein Procalcitonin 0.10 H Meds: Medications Acetaminophen (Tylenol) 650 mg PO Q4-6HP PRN; Protocol PRN Reason: Per Pain Protocol/Fever > 101 Last Admin: 06/13/20 17:20 Dose: 650 mg Documented by: Albuterol/Ipratropium (Duoneb) 3 ml NEB Q6HRT PRN PRN Reason: SHORTNESS OF BREATH Last Admin: 06/13/20 12:23 Dose: 3 ml Documented by: Benzonatate (Tessalon) 100 mg PO TIDP PRN PRN Reason: Cough Last Admin: 06/13/20 11:08 Dose: 100 mg Documented by: Bisacodyl (Dulcolax) 10 mg [place] Q2-3DAYS PRN PRN Reason: Constipation Budesonide (Pulmicort) 2 puff INH BID EV Last Admin: 06/13/20 07:52 Dose: Not Given Documented by: Dexamethasone (Decadron) 6 mg PO DAILY [facility] Last Admin: 06/13/20 08:02 Dose: 6 mg Documented by: Docusate Sodium (Colace) 100 mg PO BID [facility] Last Admin: 06/13/20 08:02 Dose: 100 mg Documented by: Guaifenesin/Codeine Phosphate (Robitussin Ac) 10 ml PO Q4HP PRN PRN Reason: Cough Last Admin: 06/13/20 13:31 Dose: 10 ml Documented by: Heparin Sodium (Porcine) (Heparin) 5,000 unit SQ Q12 EV Last Admin: 06/13/20 08:01 Dose: 5,000 unit Documented by: Hydralazine HCl (Apresoline) 10 mg IV Q4-6HP PRN PRN Reason: Hypertension Last Admin: 06/11/20 16:45 Dose: 10 mg Documented by: Hydromorphone HCl (Dilaudid) 0.25 mg IV Q2HP PRN; Protocol PRN Reason: Per Pain Protocol Last Admin: 06/12/20 20:37 Dose: 0.25 mg Documented by: Azithromycin 500 mg/ Dextrose 250 mls @ 250 mls/hr IV DAILY@1000 EV; Protocol Stop: 06/14/20 10:59 Last Infusion: 06/13/20 10:45 Dose: Infused Documented by: Potassium Chloride 40 meq/ (Dextrose) 520 mls @ 130 mls/hr IV UD PRN PRN Reason: K+ = or < 3.5 Acetaminophen (Ofirmev) 650 mg in 65 mls @ 130 mls/hr IV Q6HP PRN; Protocol PRN Reason: Per Pain Protocol/Fever > 101 Last Infusion: 06/11/20 17:52 Dose: Infused Documented by: Magnesium Sulfate (Magnesium Sulfate) 2 gm in 50 mls @ 50 mls/hr IV UD PRN PRN Reason: MG = or < 1.7 Sodium Chloride (Sodium Chloride 0.9%) 1,000 mls @ 50 mls/hr IV .Q20H [facility] Stop: 06/14/20 04:26 Last Admin: 06/12/20 17:53 Dose: 50 mls/hr Documented by: Piperacillin Sod/Tazobactam (Sod 3.375 gm/ Dextrose) 50 mls @ 100 mls/hr IV Q6H [facility]; Protocol Last Admin: 06/13/20 17:20 Dose: 100 mls/hr Documented by: Vancomycin HCl 1,250 mg/ (Sodium Chloride) 500 mls @ 333.3 mls/hr IV Q12H [facility] Last Infusion: 06/13/20 13:45 Dose: Infused Documented by: Iron Carb/Multivit/[place]/Folic Acid (Multivitamin W/Minerals) 1 tab PO DAILY [facility] Last Admin: 06/13/20 08:02 Dose: 1 tab Documented by: Lorazepam (Ativan) 0.25 mg IV Q8HP PRN PRN Reason: ANXIETY/SEDATION Last Admin: 06/13/20 14:46 Dose: 0.25 mg Documented by: Melatonin (Melatonin 3mg Tablet) 3 mg PO HSP PRN PRN Reason: Insomnia Last Admin: 06/12/20 21:50 Dose: 3 mg Documented by: Metoprolol Tartrate (Lopressor) 5 mg IV Q5M PRN PRN Reason: Heart Rate > 140 bpm Mupirocin (Bactroban Oint 2%) 1 dose NARES BID [facility] Last Admin: 06/13/20 08:32 Dose: 1 dose Documented by: Ondansetron HCl (Zofran Odt) 4 mg SL Q4-6HP PRN; Protocol PRN Reason: Nausea And Vomiting Ondansetron HCl (Zofran) 4 mg IV Q4-6HP PRN; Protocol PRN Reason: Nausea And Vomiting Polyethylene Glycol (Miralax) 17 gm PO DAILYP PRN PRN Reason: Constipation Last Admin: 06/13/20 08:01 Dose: 17 gm Documented by: Potassium Chloride (Klor-Con) 40 meq PO DAILYP PRN PRN Reason: K+ < 3.5 Senna/Docusate Sodium (Senna Plus Tablet) 1 tab PO HS [facility] Last Admin: 06/12/20 21:51 Dose: Not Given Documented by: Sodium Chloride (Saline Flush) 10 ml IV Q8 [facility] Last Admin: 06/13/20 12:52 Dose: 10 ml Documented by: Tiotropium [place] (Spiriva) 18 mcg INH DAILY [facility] Last Admin: 06/13/20 07:52 Dose: Not Given Documented by: Trazodone HCl (Desyrel) 50 mg PO HSP PRN PRN Reason: Insomnia Vancomycin HCl (Vancomycin Per Pharmacy) 1 order IV UD EV; Protocol A/P Narrative A/P Narrative: Assessment: 70-year-old female with oxygen dependent COPD presents for shortness of breath, initially felt to have COVID-19 but SARS-CoV-2 PCR negative twice. Also being treated for bacterial pneumonia, overall improvement in respiratory status however the cause of the illness is not clear. #Acute hypoxic respiratory failure #Bilateral pneumonitis #COPD exacerbation Overall improvement in respiratory status, SARS-CoV-2 PCR negative x2, respiratory panel ordered. Remdesivir discontinued, continue dexamethasone for COPD exacerbation. Continue scheduled duo nebs, albuterol nebs as needed. If this is a bacterial pneumonia it would be atypical-antibiotics deescalated to levofloxacin. Follow-up sputum culture results, follow-up blood cultures, mo nitor respiratory status supplementation as needed. #Depression/anxiety-Paroxetine #GERD-PPI. #Hypothyroidism-levothyroxine. #DVT prophylaxis-heparin SQ. Time Spent With Patient Time: Total time spent is greater than 50% in coordination of care (as documented) at patient's floor/unit and/or counseling patient: Total time spent with greater than 50% in coordination of care (as documented) at patient's floor/unit and/or counseling patient:: 25 - 35 minutes QUALITY VTE Deep Vein Thrombosis/Pulmonary Embolism Present on Admission: No
[2020-06-13] MEDS ORDERED: ALBUTEROL SULFATE 2.5 MG/3 ML NEBULIZER NEB PRN (18:25)
[2020-06-13] MEDS: LEVOFLOXACIN 750 MG/150 ML BAG IV SCH (19:51)
[2020-06-13] MEDS ORDERED: traZODone HCL 50 MG TABLET PO PRN (21:00)
[2020-06-13] MEDS: SENNOSIDES/DOCUSATE SODIUM 1 TAB TABLET PO SCH (21:50)
[2020-06-13] MEDS: 0.9 % SODIUM CHLORIDE 1,000 ML IV SCH (22:01)
[2020-06-14] MEDS: LORazepam 2 MG/ML VIAL IV PRN (00:25)
[2020-06-14] MEDS: guaiFENesin/CODEINE 10 ML UDC PO PRN ×2 (00:25→09:49)
[2020-06-14] MEDS: 0.9 % SODIUM CHLORIDE 10 ML SYRINGE IV SCH ×3 (05:50→22:28)
[2020-06-14] MEDS: ACETAMINOPHEN 650 MG/65 ML BAG IV PRN ×2 (06:06→14:36)
[2020-06-14 06:47] LABS: Basophils # (Auto) 0.02 K/mcL (0.00-0.20); Basophils % (Auto) 0.2 % (0.0-2.0); Eosinophils % (Auto) 0.9 % (0.0-7.0); Hematocrit 34.5 % (36.0-48.0); Hemoglobin 11.2 g/dL (12.0-15.0); Lymphocytes # (Auto) 3.03 K/mcL (1.50-4.80); Lymphocytes % (Auto) 28.4 % (15.0-49.0); Mean Corpuscular HGB Conc 32.5 g/dL (31.0-36.0); Mean Platelet Volume 9.4 fL (7.4-10.4); Monocytes # (Auto) 0.97 K/mcL (0.10-0.90); Monocytes % (Auto) 9.1 % (1.0-12.0); Neutrophils % (Auto) 61.4 % (38.0-78.0); Platelet Count 343 K/mcL (140-440); RBC 3.63 M/mcL (4.00-5.20); Red Cell Distribution Width 12.4 % (11.5-14.5); WBC 10.7 K/mcL (4.5-11.0)
[2020-06-14 07:11] LABS: ALT/SGPT 13 U/L (<40); AST/SGOT 14 U/L (<32); Albumin 3.5 gm/dL (3.2-5.2); Albumin/Globulin Ratio 1.2 (1.0-2.3); Alkaline Phosphatase 118 U/L (39-117); Bilirubin,Direct < 0.2 mg/dL (<0.3); Bilirubin,Total 0.2 mg/dL (0.1-1.0); Blood Urea Nitrogen 16 mg/dL (8-23); Calcium 9.4 mg/dL (8.6-10.4); Carbon Dioxide 26 mmol/L (22-30); Chloride 104 mmol/L (96-108); Glomerular Filtration Rate 87; Glucose 78 mg/dL (70-105); Lactate Dehydrogenase 280 U/L (135-225); Phosphorous 3.1 mg/dL (2.5-4.5); Triglycerides 84 mg/dL (<150); Uric Acid 3.7 mg/dL (2.5-8.0)
[2020-06-14] MEDS ORDERED: OMEPRAZOLE 20 MG CAPSULE PO SCH (07:30)
[2020-06-14] MEDS ORDERED: LEVOTHYROXINE 75 MCG TABLET PO SCH (07:30)
[2020-06-14] MEDS ORDERED: LEVOTHYROXINE 100 MCG TABLET PO SCH (07:30)
[2020-06-14] MEDS ORDERED: PAROXETINE HCL 10 MG PO SCH (09:00)
[2020-06-14] MEDS ORDERED: PARoxetine 20 MG TABLET PO SCH (09:00)
[2020-06-14] MEDS: HEPARIN 5,000 UNIT/ML VIAL SQ SCH ×2 (09:49→22:09)
[2020-06-14] MEDS: MULTIVIT,THER IRON,CA,FA & MIN 1 TABLET PO SCH (09:49)
[2020-06-14] MEDS: DOCUSATE SODIUM 100 MG CAPSULE PO SCH ×2 (09:49→22:28)
[2020-06-14] MEDS: LEVOFLOXACIN 750 MG/150 ML BAG IV SCH (09:49)
[2020-06-14] MEDS: DEXAMETHASONE 4 MG TABLET PO SCH (09:51)
[2020-06-14] MEDS: BUDESONIDE 1 PUFF INHALER INH SCH (09:59)
[2020-06-14] MEDS: MUPIROCIN OINT 2% 22GM NARES SCH ×2 (10:04→22:26)
[2020-06-14] MEDS ORDERED: POLYETHYLENE GLYCOL 3350 17 GM PACKET PO PRN (15:55)
[2020-06-14] MEDS ORDERED: hydrALAZINE 20 MG/ML VIAL IV PRN (15:55)
[2020-06-14] MEDS ORDERED: ALBUTEROL SULFATE 2.5 MG/3 ML NEBULIZER NEB PRN (15:55)
[2020-06-14] MEDS ORDERED: MELATONIN 3 MG TABLET PO PRN (15:55)
[2020-06-14] MEDS ORDERED: ONDANSETRON 4 MG ODT TABLET SL PRN (15:55)
[2020-06-14] MEDS ORDERED: BISACODYL 10 MG SUPP.RECT PR PRN (15:55)
[2020-06-14] MEDS ORDERED: ONDANSETRON 4 MG/2 ML VIAL IV PRN (15:55)
[2020-06-14] MEDS ORDERED: guaiFENesin/CODEINE 10 ML UDC PO PRN (15:55)
[2020-06-14] MEDS ORDERED: LORazepam 2 MG/ML VIAL IV PRN (15:55)
[2020-06-14] MEDS ORDERED: ACETAMINOPHEN 325 MG TABLET PO PRN (15:55)
[2020-06-14] MEDS ORDERED: IPRATROPIUM/ALBUTEROL 3 ML AMPUL.NEB NEB PRN (15:55)
[2020-06-14] MEDS: HYDROcodone/APAP 5/325MG TABLET PO PRN ×2 (16:09→22:09)
--- NOTE | 2020-06-14 18:38 | Internal Med Progress Note ---
SUBJECTIVE Subjective Patient information: Note initiated : 06/14/20 at 6:30 pm Service Date, if different from initiated Date: [] Patient: Rea Norris a 70 y/o F admitted on 06/11/20 for Shortness of breath. Chief Complaint: [] Interval history: Ms. Norris is a 70 year old F with a history of oxygen dependent COPD who lives with her son presents to the ER with worsening shortness of breath that evolved over the last 3 days. Her symptoms have progressed from dyspnea on moderate exertion to extreme shortness of breath even at rest. Patient has not been able to function or carry out her ADLs over the last couple of days , she has been trying to use her inhalers without any improvement in her symptoms. She is normally on 2 L home oxygen for COPD and increasing oxygen did not help her symptoms. She denies associated fever but endorses productive sputum. She denies rash, headache but endorses to myalgia. She denies sick contacts. She lives with her son who was not experiencing any symptoms of URI. Initial work-up in the ER was consistent with bilateral chest infiltrates/hypoxic respiratory failure along with increased work of breathing. White count 13.6, respiratory rate 40/tachycardia at 110. She was rapidly started on noninvasive ventilation for increased work of breathing and impending respiratory failure. COVID-19 test was negative. 06/12-patient tach improved. Transiently off BiPAP however tolerated noninvasive ventilation quite well overnight. Doing better. Clinical improvement noted with downtrending white count at 12.5, improved tachycardia to mid 90s/improved tachypnea down to low 20s. Complains of generalized lower back pain/hip pain following falls recently. Pelvis x-ray ordered. Continue COVID-19 contact for questions. 06/13-COVD PCR negative x2, ordered respiratory panel as chest xray suggestive of viral pneumonia. Sputum cx prelim-mixed oral ashley. Blood cultures-NGTD. MRSA nasal PCR positive. Discontinued Remdesivir, will continue Dexamethasone for now. Deescalate antibiotics to levofloxacin. Removed mcmahan catheter. Overall improvement in respiratory status, coughing a lot but stable oxygen requirement of 2l/min. 06/14-patient improving, transferred to med/surg, respiratory panel negative, repeat COVID PCR negative (third negative). Constitutional Vitals: Vital Signs Temp Pulse Resp BP Pulse Ox 98.2 F 100 H 27 H 154/66 94 12/14/20 12:00 06/14/20 18:04 06/14/20 18:04 06/14/20 18:02 06/14/20 18:04 Period Temp Pulse Resp BP Sys/[place] Pulse Ox Last 24 Hr 97.0 F-98.7 F 70-100 19-33 135-173/66-98 91-100 Intake and Output 06/14/20 06/14/20 06/14/20 05:59 13:59 21:59 Intake Total 1200 435 65 Output Total 652 1101 501 Balance 963 -426 -936 Intake & Output: Intake & Output 06/14/20 06/14/20 06/14/20 05:59 13:59 21:59 Intake Total 1200 435 65 Output Total 652 1101 501 Balance 888 -131 -315 Intake: IV 1000 215 65 Sodium Chloride 0.9% 1,000 ml @ 1000 50 mls/hr IV .Q20[facility] Rx#: [id number] Oral 200 220 Output: Void Amount 1100 500 # of times incontinent of urine 2 1 1 Urine/Stool Mix 650 Other: Urine Appearance Clear Clear Urine Color Pale Pale Urine Odor Normal Normal Stool Size Small Small Large Stool Color Brown Brown Brown Stool Consistency Loose Loose Loose # of times incontinent of 1 1 Bowels Head Head exam: Present atraumatic and normal inspection Eye Eye exam: Present normal appearance ENT ENT exam: Present mucous membranes moist, normal exam and normal external ear exam Neck Neck exam: Present normal inspection Respiratory Respiratory exam: Present rales; Absent accessory muscle use and respiratory distress Cardiovascular Cardiovascular exam: Present normal rate and rhythm GI/Abdominal GI/Abdominal exam: Present soft; Absent tenderness Back Exam Back exam: Present normal inspection Neurological Exam Neurological exam: Present alert and oriented X3 Skin Skin exam: Present intact and warm OBJ DATA Labs CBC & Chem 7: 06/14/20 05:00 06/14/20 05:00 Labs: Abnormal Lab Results 06/14/20 06/14/20 06/13/20 05:00 05:00 05:10 WBC RBC 3.63 L Hgb 11.2 L Hct 34.5 L Neut % (Auto) Lymph % (Auto) [place] # (Auto) 0.97 H Absolute Neutrophils D-Dimer Glucose Alkaline Phosphatase 118 H 120 H Lactate Dehydrogenase 280 H 252 H C-Reactive Protein 06/13/20 06/13/20 06/12/20 05:10 05:10 04:40 WBC RBC 3.45 L Hgb 10.5 L Hct 32.3 L Neut % (Auto) Lymph % (Auto) [place] # (Auto) Absolute Neutrophils D-Dimer 0.92 H Glucose 115 H Alkaline Phosphatase 123 H Lactate Dehydrogenase 280 H C-Reactive Protein 1.70 H 06/12/20 06/12/20 04:40 04:40 WBC 12.5 H RBC 3.59 L Hgb 10.9 L Hct 33.9 L Neut % (Auto) 82.0 H Lymph % (Auto) 12.9 L [place] # (Auto) Absolute Neutrophils 10.26 H D-Dimer 1.04 H Glucose Alkaline Phosphatase Lactate Dehydrogenase C-Reactive Protein Meds: Medications Acetaminophen (Tylenol) 650 mg PO Q4-6HP PRN; Protocol PRN Reason: Per Pain Protocol/Fever > 101 Hydrocodone Bitart/Acetaminophen ([place] 5/325mg) 1 tab PO Q6HP PRN; Protocol PRN Reason: Per Pain Protocol Last Admin: 06/14/20 16:09 Dose: 1 tab Documented by: Albuterol Sulfate (Ventolin) 2.5 mg NEB Q2HP PRN PRN Reason: Shortness Of Breath Albuterol/Ipratropium (Duoneb) 3 ml NEB Q6HRT PRN PRN Reason: SHORTNESS OF BREATH Benzonatate (Tessalon) 100 mg PO TIDP PRN PRN Reason: Cough Bisacodyl (Dulcolax) 10 mg SD Q2-3DAYS PRN PRN Reason: Constipation Dexamethasone (Decadron) 6 mg PO DAILY EV Docusate Sodium (Colace) 100 mg PO BID EV Guaifenesin/Codeine Phosphate (Robitussin Ac) 10 ml PO Q4HP PRN PRN Reason: Cough Heparin Sodium (Porcine) (Heparin) 5,000 unit SQ Q12 EV Hydralazine HCl (Apresoline) 10 mg IV Q4-6HP PRN PRN Reason: Hypertension Levofloxacin (Levaquin) 750 mg in 150 mls @ 100 mls/hr IV DAILY EV Iron Carb/Multivit/Groundskeeper Porter/Folic Acid (Multivitamin W/Minerals) 1 tab PO DAILY EV Levothyroxine Sodium (Synthroid) 75 mcg PO QAMAC EV Levothyroxine Sodium (Synthroid) 100 mcg PO ACB EV Lorazepam (Ativan) 0.25 mg IV Q8HP PRN PRN Reason: ANXIETY/SEDATION Melatonin (Melatonin 3mg Tablet) 3 mg PO HSP PRN PRN Reason: Insomnia Mupirocin (Bactroban Oint 2%) 1 dose NARES BID EV Omeprazole (Prilosec) 20 mg PO ACB VE Ondansetron HCl (Zofran Odt) 4 mg SL Q4-6HP PRN; Protocol PRN Reason: Nausea And Vomiting Ondansetron HCl (Zofran) 4 mg IV Q4-6HP PRN; Protocol PRN Reason: Nausea And Vomiting Paroxetine HCl (Paxil) 50 mg PO DAILY EV Polyethylene Glycol (Miralax) 17 gm PO DAILYP PRN PRN Reason: Constipation Senna/Docusate Sodium (Senna Plus Tablet) 1 tab PO HS EV Sodium Chloride (Saline Flush) 10 ml IV Q8 EV Trazodone HCl (Desyrel) 50 mg PO HSP PRN PRN Reason: Insomnia A/P Narrative A/P Narrative: Assessment: 70-year-old female with oxygen dependent COPD presents for shortness of breath, initially felt to have COVID-19 but SARS-CoV-2 PCR negative x3, respiratory panel (including influenza A/B) negative. Also being treated for bacterial pneumonia, overall improvement in respiratory status however the cause of the illness is not clear. #Acute hypoxic respiratory failure #Bilateral pneumonitis #COPD exacerbation Overall improvement in respiratory status, SARS-CoV-2 PCR negative x3, respiratory panel negative. Remdesivir discontinued, continue dexamethasone for COPD exacerbation and demonstrated benefit. Not clear why the patient has bilateral pneumonitis, it does not appear to be infectious in nature. Does not seem consistent with heart failure but will check a BNP and consider an ECHO. Other causes of pneumonitis are in the differential so will get a high resolution noncontrast CT chest for further evaluation and consider a pulmonology consult for further workup including possible bronchoscopy. Continue scheduled duo nebs, albuterol nebs as needed. If this is a bacterial pneumonia it would be atypical-levofloxacin should cover for that. Follow-up sputum culture results, urine legionella ag, follow-up blood cultures, monitor respiratory status supplementation as needed. #Depression/anxiety-Paroxetine #GERD-PPI. #Hypothyroidism-levothyroxine. #DVT prophylaxis-heparin SQ. Time Spent With Patient Time: Total time spent is greater than 50% in coordination of care (as documented) at patient's floor/unit and/or counseling patient: Total time spent with greater than 50% in coordination of care (as documented) at patient's floor/unit and/or counseling patient:: 25 - 35 minutes QUALITY VTE Deep Vein Thrombosis/Pulmonary Embolism Present on Admission: No
[2020-06-14] MEDS ORDERED: BUDESONIDE 1 PUFF INHALER INH SCH (21:00)
[2020-06-14] MEDS: traZODone HCL 50 MG TABLET PO PRN (22:10)
[2020-06-14] MEDS: BENZONATATE 100 MG CAPSULE PO PRN (22:11)
[2020-06-14] MEDS: SENNOSIDES/DOCUSATE SODIUM 1 TAB TABLET PO SCH (22:28)
[2020-06-15] MEDS: 0.9 % SODIUM CHLORIDE 10 ML SYRINGE IV SCH ×3 (05:53→22:46)
[2020-06-15] MEDS: OMEPRAZOLE 20 MG CAPSULE PO SCH (07:10)
[2020-06-15] MEDS: BENZONATATE 100 MG CAPSULE PO PRN (07:10)
[2020-06-15] MEDS: LEVOTHYROXINE 75 MCG TABLET PO SCH (07:11)
[2020-06-15] MEDS: LEVOTHYROXINE 100 MCG TABLET PO SCH (07:11)
[2020-06-15 07:42] LABS: Basophils # (Auto) 0.01 K/mcL (0.00-0.20); Basophils % (Auto) 0.1 % (0.0-2.0); Eosinophils # (Auto) 0.13 K/mcL (0.00-0.70); Eosinophils % (Auto) 1.4 % (0.0-7.0); Hematocrit 32.8 % (36.0-48.0); Hemoglobin 10.7 g/dL (12.0-15.0); Lymphocytes # (Auto) 2.49 K/mcL (1.50-4.80); Lymphocytes % (Auto) 26.7 % (15.0-49.0); Mean Corpuscular HGB Conc 32.6 g/dL (31.0-36.0); Mean Platelet Volume 9.5 fL (7.4-10.4); Monocytes # (Auto) 0.68 K/mcL (0.10-0.90); Monocytes % (Auto) 7.3 % (1.0-12.0); Neutrophils % (Auto) 64.5 % (38.0-78.0); Platelet Count 324 K/mcL (140-440); RBC 3.49 M/mcL (4.00-5.20); Red Cell Distribution Width 12.3 % (11.5-14.5); WBC 9.3 K/mcL (4.5-11.0)
[2020-06-15] MEDS: MUPIROCIN OINT 2% 22GM NARES SCH ×2 (08:34→22:46)
[2020-06-15] MEDS: DEXAMETHASONE 4 MG TABLET PO SCH (08:34)
[2020-06-15] MEDS: HYDROcodone/APAP 5/325MG TABLET PO PRN ×2 (08:34→14:39)
[2020-06-15] MEDS: HEPARIN 5,000 UNIT/ML VIAL SQ SCH ×2 (08:34→22:46)
[2020-06-15] MEDS: MULTIVIT,THER IRON,CA,FA & MIN 1 TABLET PO SCH (08:34)
[2020-06-15] MEDS: DOCUSATE SODIUM 100 MG CAPSULE PO SCH ×3 (08:35→22:48)
[2020-06-15] MEDS: LEVOFLOXACIN 750 MG/150 ML BAG IV SCH (08:35)
[2020-06-15] MEDS: PARoxetine 20 MG TABLET PO SCH (09:20)
[2020-06-15 09:36] LABS: ALT/SGPT 13 U/L (<40); AST/SGOT 14 U/L (<32); Albumin 3.2 gm/dL (3.2-5.2); Albumin/Globulin Ratio 1.1 (1.0-2.3); Alkaline Phosphatase 125 U/L (39-117); Bilirubin,Direct < 0.2 mg/dL (<0.3); Bilirubin,Total 0.2 mg/dL (0.1-1.0); Blood Urea Nitrogen 15 mg/dL (8-23); Calcium 9.4 mg/dL (8.6-10.4); Carbon Dioxide 28 mmol/L (22-30); Chloride 102 mmol/L (96-108); Globulin 2.9 gm/dL (2.2-3.7); Glomerular Filtration Rate 87; Glucose 90 mg/dL (70-105); Lactate Dehydrogenase 237 U/L (135-225); Phosphorous 3.6 mg/dL (2.5-4.5); Triglycerides 108 mg/dL (<150); Uric Acid 4.8 mg/dL (2.5-8.0)
[2020-06-15] MEDS ORDERED: FLU VACC QS2020-21(6MOS UP)/PF 60 MCG/0.5 ML SYRINGE IM ONE (10:00)
--- NOTE | 2020-06-15 16:41 | Consultation ---
DATE OF CONSULTATION: 06/15/2020 HISTORY OF PRESENT ILLNESS: The patient is a 70-year-old female admitted to [facility] on 06/11/2020 because of a possible pneumonia. The patient indicates that she presented to the emergency room at [facility] because of a fall and pain. Apparently during her evaluation in the emergency room, she was found to have abnormal auscultation of the chest, and she was referred for admission for possible pneumonia. She has received initially broad-spectrum antibiotics with vancomycin, Zosyn and azithromycin. She has been recently concentrated down to Levaquin alone for her pulmonary findings. Radiology of the chest is reviewed, indicating the presence of a chronic pulmonary fibrotic syndrome going back to 2017 with auscultatory findings in the chest. The patient indicates that she has had some cough and sputum production. That has improved with some of her therapeutic interventions in the hospital. She is back down to her routine 2-3 liters of oxygen for her longstanding fibrotic lung disease. She has bronchiectasis associated with that with chronic sputum production which has been more yellow lately. The patient reports a 75-[id number] tobacco history. She denies industrial occupational exposures. She denies unusual pets, plants, or birds in the home, but had a bird 14 years ago. It was a cockatiel that she had for 30 years. That would raise the possibility that some of her lung difficulties, may have been due to an early extrinsic allergic alveolitis. She denies symptomatic gastroesophageal reflux disease, but is encouraged to institute an antireflux regimen as possibly it relates to her current pulmonary situation. She reports that her mother had tuberculosis and she had her tonsils removed, which were said to be infected with tuberculosis at a young age while in [place]. It sounds like she received a course of anti-biotics after surgical intervention. There is a question of a rheumatologic condition, which may have contributed to her pulmonary disability/fibrosis as well. REVIEW OF SYSTEMS: Otherwise negative except as recorded above. PHYSICAL EXAMINATION: GENERAL: Pleasant, overweight female in no acute distress at this time. HEAD: Atraumatic, normocephalic. NECK: Supple. LUNGS: Have decreased breath sounds in all lung brito with coarse and fine interstitial crackles scattered through both lungs. Findings are a little greater on the right. CARDIOVASCULAR: Regular. S1, S2. There is no apparent gallop, rub, jugular venous distention, or edema. ABDOMEN: Soft. Bowel sounds are present. Liver and spleen is not palpable. BONES, JOINTS, AND EXTREMITIES: Without acute changes. LABORATORY DATA: Shows a mildly elevated white count through her clinical course and mild anemia. Arterial blood gas from 06/12/2020 shows a PaO2 at 70, PaCO2 at 43, and pH at 7.45. This is suggested to be on oxygen at 3 liters per minute at that time. IMAGING: Chest radiography as discussed above. IMPRESSION: Chronic pulmonary fibrotic bronchiectatic syndrome. I would be happy to see this patient as an outpatient in followup of her condition. At this time, I would finish a course of oral antibiotics for any pathogens identified. She seems to be near maximum hospital benefit at this time. I discussed with Hospitalist the afternoon of 06/15/2020. ANABELA:norma Job ID: [id number] Doc ID: [id number] Cole Reynaga MD MTDD
--- NOTE | 2020-06-15 17:33 | Internal Med Progress Note ---
SUBJECTIVE Subjective Patient information: Note initiated : 06/15/20 at 5:24 pm Service Date, if different from initiated Date: [] Patient: Rea Norris a 70 y/o F admitted on 06/11/20 for Shortness of breath. Chief Complaint: [] Interval history: Ms. Norris is a 70 year old F with a history of oxygen dependent COPD who lives with her son presents to the ER with worsening shortness of breath that evolved over the last 3 days. Her symptoms have progressed from dyspnea on moderate exertion to extreme shortness of breath even at rest. Patient has not been able to function or carry out her ADLs over the last couple of days , she has been trying to use her inhalers without any improvement in her symptoms. She is normally on 2 L home oxygen for COPD and increasing oxygen did not help her symptoms. She denies associated fever but endorses productive sputum. She denies rash, headache but endorses to myalgia. She denies sick contacts. She lives with her son who was not experiencing any symptoms of URI. Initial work-up in the ER was consistent with bilateral chest infiltrates/hypoxic respiratory failure along with increased work of breathing. White count 13.6, respiratory rate 40/tachycardia at 110. She was rapidly started on noninvasive ventilation for increased work of breathing and impending respiratory failure. COVID-19 test was negative. 06/12-patient tach improved. Transiently off BiPAP however tolerated noninvasive ventilation quite well overnight. Doing better. Clinical improvement noted with downtrending white count at 12.5, improved tachycardia to mid 90s/improved tachypnea down to low 20s. Complains of generalized lower back pain/hip pain following falls recently. Pelvis x-ray ordered. Continue COVID-19 contact for questions. 06/13-COVD PCR negative x2, ordered respiratory panel as chest xray suggestive of viral pneumonia. Sputum cx prelim-mixed oral ashley. Blood cultures-NGTD. MRSA nasal PCR positive. Discontinued Remdesivir, will continue Dexamethasone for now. Deescalate antibiotics to levofloxacin. Removed mcmahan catheter. Overall improvement in respiratory status, coughing a lot but stable oxygen requirement of 2l/min. 06/14-patient improving, transferred to med/surg, respiratory panel negative, repeat COVID PCR negative (third negative). 06/15-pulmonology consulted-feels the patient lung finds are chronic compared to previous CT chest scans in outside records. Constitutional Vitals: Vital Signs Temp Pulse Resp BP Pulse Ox 97.4 F 100 H 20 134/65 93 06/15/20 15:36 06/15/20 15:36 06/15/20 15:36 06/15/20 15:36 06/15/20 15:38 Period Temp Pulse Resp BP Sys/[place] Pulse Ox Last 24 Hr 97.0 F-97.8 F 75-100 16-31 134-160/65-118 92-99 Intake and Output 06/15/20 06/15/20 06/15/20 05:59 13:59 21:59 Intake Total 150 250 Output Total 325 Balance -175 250 Intake & Output: Intake & Output 06/15/20 06/15/20 06/15/20 05:59 13:59 21:59 Intake Total 150 250 Output Total 325 Balance -175 250 Intake: IV 150 Oral 250 Output: Void Amount 325 Other: Meal Dinner Percent of Meal Consumed 75% Feeding Ability Independent Urine Appearance Clear Urine Color Bright Yellow Urine Odor Normal # Bowel Movements 0 Head Head exam: Present atraumatic and normal inspection Eye Eye exam: Present normal appearance ENT ENT exam: Present mucous membranes moist, normal exam and normal external ear exam Neck Neck exam: Present normal inspection Respiratory Respiratory exam: Present rales; Absent accessory muscle use and respiratory distress Cardiovascular Cardiovascular exam: Present normal rate and rhythm GI/Abdominal GI/Abdominal exam: Present normal bowel sounds Back Exam Back exam: Present normal inspection Neurological Exam Neurological exam: Present alert and oriented X3 Skin Skin exam: Present intact and warm OBJ DATA Labs CBC & Chem 7: 06/15/20 05:30 06/15/20 05:30 Labs: Abnormal Lab Results 06/15/20 06/15/20 06/15/20 05:31 05:30 05:30 RBC 3.49 L Hgb 10.7 L Hct 32.8 L [place] # (Auto) D-Dimer Alkaline Phosphatase 125 H Lactate Dehydrogenase 237 H NT-Pro-B Natriuret Pep 425.8 H 06/14/20 06/14/20 06/13/20 05:00 05:00 05:10 RBC 3.63 L Hgb 11.2 L Hct 34.5 L [place] # (Auto) 0.97 H D-Dimer Alkaline Phosphatase 118 H 120 H Lactate Dehydrogenase 280 H 252 H NT-Pro-B Natriuret Pep 06/13/20 06/13/20 05:10 05:10 RBC 3.45 L Hgb 10.5 L Hct 32.3 L [place] # (Auto) D-Dimer 0.92 H Alkaline Phosphatase Lactate Dehydrogenase NT-Pro-B Natriuret Pep Meds: Medications Acetaminophen (Tylenol) 650 mg PO Q4-6HP PRN; Protocol PRN Reason: Per Pain Protocol/Fever > 101 Last Admin: 06/14/20 19:16 Dose: 650 mg Documented by: Hydrocodone Bitart/Acetaminophen ([place] 5/325mg) 1 tab PO Q6HP PRN; Protocol PRN Reason: Per Pain Protocol Last Admin: 06/15/20 14:39 Dose: 1 tab Documented by: Albuterol Sulfate (Ventolin) 2.5 mg NEB Q2HP PRN PRN Reason: Shortness Of Breath Albuterol/Ipratropium (Duoneb) 3 ml NEB Q6HRT PRN PRN Reason: SHORTNESS OF BREATH Benzonatate (Tessalon) 100 mg PO TIDP PRN PRN Reason: Cough Last Admin: 06/15/20 07:10 Dose: 100 mg Documented by: Bisacodyl (Dulcolax) 10 mg MD Q2-3DAYS PRN PRN Reason: Constipation Dexamethasone (Decadron) 6 mg PO DAILY [facility] Last Admin: 06/15/20 08:34 Dose: 6 mg Documented by: Docusate Sodium (Colace) 100 mg PO BID [facility] Last Admin: 06/15/20 08:35 Dose: Not Given Documented by: Guaifenesin/Codeine Phosphate (Robitussin Ac) 10 ml PO Q4HP PRN PRN Reason: Cough Last Admin: 06/15/20 03:50 Dose: 10 ml Documented by: Heparin Sodium (Porcine) (Heparin) 5,000 unit SQ Q12 [facility] Last Admin: 06/15/20 08:34 Dose: 5,000 unit Documented by: Hydralazine HCl (Apresoline) 10 mg IV Q4-6HP PRN PRN Reason: Hypertension Levofloxacin (Levaquin) 750 mg in 150 mls @ 100 mls/hr IV DAILY [facility] Last Infusion: 06/15/20 10:22 Dose: Infused Documented by: Iron Carb/Multivit/Fixture Repairer Fabricator/Folic Acid (Multivitamin W/Minerals) 1 tab PO DAILY [facility] Last Admin: 06/15/20 08:34 Dose: 1 tab Documented by: Levothyroxine Sodium (Synthroid) 75 mcg PO QAMAC [facility] Last Admin: 06/15/20 07:11 Dose: 75 mcg Documented by: Levothyroxine Sodium (Synthroid) 100 mcg PO ACB [facility] Last Admin: 06/15/20 07:11 Dose: 100 mcg Documented by: Lorazepam (Ativan) 0.25 mg IV Q8HP PRN PRN Reason: ANXIETY/SEDATION Melatonin (Melatonin 3mg Tablet) 3 mg PO HSP PRN PRN Reason: Insomnia Mupirocin (Bactroban Oint 2%) 1 dose NARES BID [facility] Last Admin: 06/15/20 08:34 Dose: 1 dose Documented by: Omeprazole (Prilosec) 20 mg PO ACB [facility] Last Admin: 06/15/20 07:10 Dose: 20 mg Documented by: Ondansetron HCl (Zofran Odt) 4 mg SL Q4-6HP PRN; Protocol PRN Reason: Nausea And Vomiting Ondansetron HCl (Zofran) 4 mg IV Q4-6HP PRN; Protocol PRN Reason: Nausea And Vomiting Paroxetine HCl (Paxil) 50 mg PO DAILY [facility] Last Admin: 06/15/20 09:20 Dose: 50 mg Documented by: Polyethylene Glycol (Miralax) 17 gm PO DAILYP PRN PRN Reason: Constipation Senna/Docusate Sodium (Senna Plus Tablet) 1 tab PO HS [facility] Last Admin: 06/14/20 22:28 Dose: Not Given Documented by: Sodium Chloride (Saline Flush) 10 ml IV Q8 [facility] Last Admin: 06/15/20 14:40 Dose: 10 ml Documented by: Trazodone HCl (Desyrel) 50 mg PO HSP PRN PRN Reason: Insomnia Last Admin: 06/14/20 22:10 Dose: 50 mg Documented by: A/P Narrative A/P Narrative: Assessment: 70-year-old female with oxygen dependent COPD, chronic n lung disease, presents for shortness of breath, initially felt to have COVID-19 but SARS-CoV-2 PCR negative x3, respiratory panel (including influenza A/B) negative. Also being treated for bacterial pneumonia. Pulmonology feels the CT chest findings are consistent with chronic ILD. #Acute on chronic hypoxic respiratory failure, resolved #Chronic interstitial lung disease #COPD exacerbation #Possible pneumonia Overall improvement in respiratory status, at baseline O2 requirement now, SARS-CoV-2 PCR negative x3, respiratory panel negative. Remdesivir discontinued, continue dexamethasone for COPD exacerbation and demonstrated benefit. Pulmonology feels the CT chest finds are similar but somewhat worsened compared to previous CT scans consistent with chronic ILD. Does not seem consistent with heart failure but BNP was elevated so ordered ECHO-pending. Continue scheduled duo nebs, albuterol nebs as needed. Complete course of pneumonia abx with levofloxacin. Sputum culture results-mixed oral ashley, urine legionella ag-pending, follow-up blood cultures-NGTD, oxygen supplementation as needed. #Depression/anxiety-Paroxetine #GERD-PPI. #Hypothyroidism-levothyroxine. #DVT prophylaxis-heparin SQ. Time Spent With Patient Time: Total time spent is greater than 50% in coordination of care (as documented) at patient's floor/unit and/or counseling patient: Total time spent with greater than 50% in coordination of care (as documented) at patient's floor/unit and/or counseling patient:: 25 - 35 minutes QUALITY VTE Deep Vein Thrombosis/Pulmonary Embolism Present on Admission: No
--- NOTE | 2020-06-15 18:42 | Cat Scan Report ---
CLINICAL INFORMATION: Shortness of breath COMPARISON: Chest CT 06/03/2017 and 05/17/2020 [facility] TECHNIQUE: 0.625 mm axial slices were obtained from the lung apices through the bases without intravenous contrast. 2.5 mm Sagittal, coronal and axial reformatted images were processed and reviewed at bone, lung and soft tissue windows. 7 mm axial MIP images were also reconstructed to optimize pulmonary nodule detection.The exam was performed using radiation dose optimization techniques including, but not limited to, automated exposure control, adjustment of the mA and/or kV according to patient size and use of iterative reconstruction technique. FINDINGS: Pulmonary parenchymal windows show severe tubular and varicose bronchiectasis involving the lobar, segmental and subsegmental bronchi of the right upper middle and lower lobes. No left lung bronchiectasis. Severe honeycombing fibrosis throughout the right lower lobe with smaller regions in the anterior medial periphery of the right upper lobe and smaller regions in the peripheral right middle lobe. There is also mild region of bandlike honeycomb fibrosis in the peripheral left lower lobe. Moderate-sized vague groundglass infiltrate throughout the left lower lobe has progressed from the most recent CT one month ago. A mild mild superimposed groundglass infiltrate within the right lower lobe is also new. An 8 mm nodule in the posterior segment right upper lobe on image 25 and unchanged from the most recent CT. It was not seen on 2017. Mediastinal windows show mild enlargement of the central pulmonary arteries with a diameter of the main pulmonary 3 cm suggesting pulmonary hypertension. Moderately enlarged lymph nodes in the right hilum and lower mediastinum are unchanged from most recent exam. The noncontrast thoracic aorta is normal. The heart is mildly enlarged. Esophagus is grossly normal. Thyroid unremarkable. Bones soft tissues the chest wall show no significant abnormality.Images of the superior abdomen are unremarkable. IMPRESSION: 1. Severe tubular and varicose bronchiectasis involving the lobar, segmental and subsegmental bronchi of the right upper, middle and lower lobes. No left lung involvement. There is severe honeycomb fibrosis throughout the right lower lobe, mild involvement in the peripheral right upper lobe, scattered within the right middle lobe and peripheral left lower lobe. Large superimposed groundglass infiltrates are seen in both lower lobes - new from most recent CT one month prior. Suspect aspiration or infection. Covid pneumonia is a possibility. 2. Mild enlargement central pulmonary arteries suggesting pulmonary hypertension 3. Mildly enlarged lower mediastinal lymph nodes likely benign reactive lymph nodes. Interpreted and Authenticated by: Harmeet Vega 06/15/20
[2020-06-15] MEDS: SENNOSIDES/DOCUSATE SODIUM 1 TAB TABLET PO SCH ×2 (22:45→22:48)
[2020-06-15] MEDS: traZODone HCL 50 MG TABLET PO PRN (23:02)
[2020-06-16] MEDS: 0.9 % SODIUM CHLORIDE 10 ML SYRINGE IV SCH (04:13)
[2020-06-16 06:59] LABS: Basophils # (Auto) 0.01 K/mcL (0.00-0.20); Basophils % (Auto) 0.1 % (0.0-2.0); Eosinophils # (Auto) 0.04 K/mcL (0.00-0.70); Eosinophils % (Auto) 0.4 % (0.0-7.0); Hematocrit 33.1 % (36.0-48.0); Hemoglobin 11.1 g/dL (12.0-15.0); Lymphocytes # (Auto) 2.33 K/mcL (1.50-4.80); Lymphocytes % (Auto) 21.2 % (15.0-49.0); Mean Cell Volume 90.9 fL (80.0-100.0); Mean Corpuscular HGB Conc 33.5 g/dL (31.0-36.0); Mean Platelet Volume 9.1 fL (7.4-10.4); Monocytes # (Auto) 0.81 K/mcL (0.10-0.90); Monocytes % (Auto) 7.4 % (1.0-12.0); Neutrophils % (Auto) 70.9 % (38.0-78.0); Platelet Count 324 K/mcL (140-440); RBC 3.64 M/mcL (4.00-5.20)
[2020-06-16 07:41] LABS: ALT/SGPT 12 U/L (<40); AST/SGOT 15 U/L (<32); Albumin 3.2 gm/dL (3.2-5.2); Alkaline Phosphatase 138 U/L (39-117); Bilirubin,Direct < 0.2 mg/dL (<0.3); Bilirubin,Total 0.2 mg/dL (0.1-1.0); Blood Urea Nitrogen 16 mg/dL (8-23); Calcium 9.4 mg/dL (8.6-10.4); Carbon Dioxide 26 mmol/L (22-30); Chloride 103 mmol/L (96-108); Globulin 3.1 gm/dL (2.2-3.7); Glomerular Filtration Rate 92; Glucose 92 mg/dL (70-105); Lactate Dehydrogenase 319 U/L (135-225); Phosphorous 3.4 mg/dL (2.5-4.5); Triglycerides 88 mg/dL (<150); Uric Acid 5.2 mg/dL (2.5-8.0)
--- NOTE | 2020-06-16 09:41 | XRay Report ---
CLINICAL INFORMATION: Chronic interstitial lung disease. Evaluate for aspiration and GERD reflux TECHNIQUE: Carbon dioxide crystals and 10 cc of water with simethacone drops were administered. High density/high viscosity barium was ingested under fluoroscopic observation while spot films were obtained of the esophagus during deglutition in both the upright and prone positions. FINDINGS: Tongue elevation and palate depression are normal resulting in propulsion of the barium bolus into the pharynx. The nasopharyngeus closes normally. Pharyngeal stripping is normal. There is incomplete opening of the cricopharyngeus and a small web in the anterior cervical esophagus resulting in minimal cervical esophageal narrowing - less then 15%. Incomplete epiglottis and vocal cord closure allows minimal descending aspiration with a trace of barium penetrating the laryngeal vestibule and trachea. This did not appear to elicit a cough reflex. The primary peristaltic wave and lower esophageal sphincter opening are normal. The esophagus is, otherwise, normal in contour and caliber without evidence of esophagitis or focal lesion. No hiatal hernia or reflux could be induced. IMPRESSION: Equivocal cricopharyngeal achalasia. 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 Incomplete epiglottis and vocal cord closure allowing minimal descending aspiration with trace barium penetrating the laryngeal vestibule into the trachea. It did not appear to elicit a cough reflex. Formal swallowing function study with the speech pathology might be indicated Interpreted and Authenticated by: Harmeet Vega 06/16/20
[2020-06-16] MEDS: LEVOFLOXACIN 750 MG/150 ML BAG IV SCH (09:51)
[2020-06-16] MEDS: OMEPRAZOLE 20 MG CAPSULE PO SCH (09:52)
[2020-06-16] MEDS: DEXAMETHASONE 4 MG TABLET PO SCH (09:52)
[2020-06-16] MEDS: LEVOTHYROXINE 100 MCG TABLET PO SCH (09:53)
[2020-06-16] MEDS: HYDROcodone/APAP 5/325MG TABLET PO PRN (09:53)
[2020-06-16] MEDS: PARoxetine 20 MG TABLET PO SCH (09:54)
[2020-06-16] MEDS: HEPARIN 5,000 UNIT/ML VIAL SQ SCH (09:54)
[2020-06-16] MEDS: MULTIVIT,THER IRON,CA,FA & MIN 1 TABLET PO SCH (09:54)
[2020-06-16] MEDS: LEVOTHYROXINE 75 MCG TABLET PO SCH (09:54)
[2020-06-16] MEDS: MUPIROCIN OINT 2% 22GM NARES SCH (09:55)
[2020-06-16] MEDS: DOCUSATE SODIUM 100 MG CAPSULE PO SCH (09:55)
--- NOTE | 2020-06-16 10:33 | Discharge Summary ---
Discharge Provider Provider Patient information: Note initiated : 06/16/20 at 10:32 am Service Date, if different from initiated Date: [] Patient: Rea Norris 70 y/o F admitted on 06/11/20 for Shortness of breath. Chief Complaint: [shortness of breath] Date of admission: 06/11/20 15:53 Discharge date: 06/16/20 Primary care physician: Ramona Samuel Consults: 06/11/20 14:29 Consult to Physician [CONS] Stat Comment: Consulting Provider: Jean Carlos Heller Reason For Exam: Physician to Consult 06/15/20 17:21 Consult to Physician [CONS] Routine Comment: Consulting Provider: Cole Reynaga Reason For Exam: Physician to Consult Discharge Meds Discharge Medications Home Medications albuterol sulfate 90 mcg/actuation aerosol inhaler 2 puff INHALATION Q4-6HP PRN g 04/09/17 [History Confirmed 06/13/20 Last Taken 06/10/20 14:00] paroxetine HCl 10 mg tablet 10 mg PO QDAY 04/09/17 [History Confirmed 06/13/20 Last Taken 06/10/20 10:00] paroxetine HCl 40 mg tablet 40 mg PO QDAY 04/09/17 [History Confirmed 06/13/20 Last Taken 06/10/20 10:00] Myrbetriq 50 mg PO QDAY 06/12/20 [History Confirmed 06/13/20 Last Taken 06/10/20 10:00] hydrocodone-acetaminophen 1 tab PO Q12 PRN 06/12/20 [History Confirmed 06/13/20 Last Taken 06/10/20 10:00] levothyroxine 175 mcg PO QDAY 06/12/20 [History Confirmed 06/13/20 Last Taken 06/10/20 10:00] omeprazole 20 mg PO QDAY 06/12/20 [History Confirmed 06/13/20 Last Taken Unk nown] prednisone 10 mg PO QDAY 06/12/20 [History Confirmed 06/13/20 Last Taken 06/10/20 21:00] dexamethasone 6 mg PO DAILY 5 Days #8 tab 06/16/20 [Rx Last Taken Unknown] levofloxacin 750 mg PO Q24H 2 Days #2 tab 06/16/20 [Rx Last Taken Unknown] COURSE Hospital Course Hospital course: Ms. Norris is a 70 year old F with a history of oxygen dependent COPD who lives with her son presents to the ER with worsening shortness of breath that evolved over the last 3 days. Her symptoms have progressed from dyspnea on moderate exertion to extreme shortness of breath even at rest. Patient has not been able to function or carry out her ADLs over the last couple of days , she has been trying to use her inhalers without any improvement in her symptoms. She is normally on 2 L home oxygen for COPD and increasing oxygen did not help her symptoms. She denies associated fever but endorses productive sputum. She denies rash, headache but endorses to myalgia. She denies sick contacts. She lives with her son who was not experiencing any symptoms of URI. Initial work-up in the ER was consistent with bilateral chest infiltrates/hypoxic respiratory failure along with increased work of breathing. White count 13.6, respiratory rate 40/tachycardia at 110. She was rapidly started on noninvasive ventilation for increased work of breathing and impending respiratory failure. COVID-19 test was negative. The patient was continued on BiPAP the first night and the next day her respiratory status clinically improved. however tolerated noninvasive ventilation quite well overnight. Doing better. Clinical improvement noted with downtrending white count at 12.5, improved tachycardia to mid 90s/improved tachypnea down to low 20s. A respiratory panel was negative. Antibiotics deescalated to levofloxacin. 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 Pulmonology was consulted and after reviewing outside records felt this was a chronic process. A barium swallow for ILD workup showed minimal aspiration, a formal swallow function test might be indicated after discharge. Meanwhile the patient continued to improve. Initially her respiratory failure was felt to be due to COVID-19 however after three negative tests isolation was discontinued and Remdesivir discontinued. She was continued on Dexamethasone because of demonstrated benefit in respiratory status. She was discharged to home to complete a short course of levofloxacin for pneumonia. She will follow up with pulmonology in clinic. Discharge diagnosis: Pneumonia Secondary discharge diagnosis: acute on chronic hypoxic respiratory failure Time Spent with Patient Time attestation: Total time spent providing and/or coordinating discharge services: EXAM Constitutional Vitals: Temp Pulse Resp BP Pulse Ox 97.4 F 88 20 161/77 95 06/16/20 08:00 06/16/20 08:00 06/16/20 08:00 06/16/20 08:00 06/16/20 08:00 Head Head exam: Present atraumatic and normal inspection Neck Neck exam: Present full ROM Respiratory Respiratory exam: Present rales; Absent accessory muscle use and wheezes Cardiovascular Cardiovascular exam: Present normal rate and rhythm GI/Abdominal GI/Abdominal exam: Present normal bowel sounds Extremities Exam Extremities exam: Present full ROM and normal inspection Neurological Exam Neurological exam: Present CN II-XII intact and oriented X3 Psychiatric Psychiatric exam: Present normal affect and normal mood Skin Skin exam: Present normal color and warm Discharge Data Data Completed and Pending Labs on day of discharge: Labs from last 24 hours 06/16/20 06/16/20 06:11 06:11 WBC 11.0 RBC 3.64 L Hgb 11.1 L Hct 33.1 L MCV 90.9 MCH 30.5 MCHC 33.5 RDW 12.0 Plt Count 324 MPV 9.1 Neut % (Auto) 70.9 Lymph % (Auto) 21.2 [place] % (Auto) 7.4 Eos % (Auto) 0.4 Baso % (Auto) 0.1 Lymph # (Auto) 2.33 [place] # (Auto) 0.81 Eos # (Auto) 0.04 Baso # (Auto) 0.01 Absolute Neutrophils 7.81 Sodium 140 Potassium 3.6 Chloride 103 Carbon Dioxide 26 Anion Gap 11.0 BUN 16 Creatinine 0.6 GFR Calculation 92 Glucose 92 Uric Acid 5.2 Calcium 9.4 Phosphorus 3.4 Magnesium 2.0 Total Bilirubin 0.2 Direct Bilirubin < 0.2 GGT 29 AST 15 ALT 12 Alkaline Phosphatase 138 H Lactate Dehydrogenase 319 H Total Protein 6.3 Albumin 3.2 Globulin 3.1 Albumin/Globulin Ratio 1.0 Triglycerides 88 Preliminary micro results at discharge 06/11/20 13:22 Blood Culture - Preliminary Blood 06/11/20 13:15 Blood Culture - Preliminary Blood Discharge Plan Patient/Caregiver Discharge Instructions Activity: as per physical therapy Diet: Regular Diet Instructions: Levofloxacin (By mouth), Dexamethasone (By mouth), Viral Pneumonia (DC), COPD (Chronic Obstructive Pulmonary Disease) (DC), Sepsis (GEN), Hypoxia (GEN), Chronic Lung Disease and Infection Prevention (DC) Activity Restrictions/Additional Instructions: Activity as per physical therapy. May have regular diet. Call your physician for sustained fever greater than 100.5, increase in shortness of breath, increase in weakness, or any other questions/concerns. This discharge packet is provided to you to help keep you informed about your care. We want to ensure you get everything you need when you go home. You will also be receiving a call from us in a few days to follow up with you and see how you are doing since your discharge. This gives us a chance to listen to any concerns you maybe experiencing since you were discharged or any additional needs you may have, as well as providing us feedback on your care experience. We strive to always provide excellent care and thank you for your feedback and for choosing [facility]. Prescriptions: New dexamethasone 4 mg Tablet 6 mg PO DAILY 5 Days Qty: 8 RF: 0 levofloxacin 750 mg tablet 750 mg PO Q24H 2 Days Qty: 2 RF: 0 Continued paroxetine HCl 10 mg tablet 10 mg PO QDAY RF: 0 paroxetine HCl 40 mg tablet 40 mg PO QDAY RF: 0 albuterol sulfate [Ventolin HFA] 90 mcg/actuation HFA aerosol inhaler 2 puff INHALATION Q4-6HP PRN (Reason: Shortness Of Breath) RF: 0 levothyroxine 175 mcg Tablet 175 mcg PO QDAY RF: 0 prednisone 10 mg Tablet 10 mg PO QDAY RF: 0 hydrocodone-acetaminophen 5-325 mg Tablet 1 tab PO Q12 PRN (Reason: Pain) RF: 0 omeprazole 20 mg Capsule,Delayed Release(Dr/Ec) 20 mg PO QDAY RF: 0 Myrbetriq 50 mg Tablet Extended Release 24 Hr 50 mg PO QDAY RF: 0 Other Ambulatory Orders: Home Oxygen Order (Routine) Location: None Selected Ordered By: Andrea Kapadia OT Discharge Order (Routine) Location: None Selected Ordered By: Andrea Kapadia Physical Therapy at Discharge - General (Routine) Location: None Selected Ordered By: Andrea Kapadia Follow Up Plan Follow up with: Cole Reynaga MD [Physician] - (Please call and schedule a hospital/refer follow up appointment.) Ramona Samuel ARNP [Primary Care Provider] - (Please call and schedule a hospital follow up appointment.) Patient Disposition: Xfer SNF Prognosis: Fair Rehab Potential: Fair I certify that the patient requires SNF services: Yes Overall status at discharge: patient is progressing back to baseline Discharge Date/Time: 06/16/20 11:40 Discharge Location: [facility] Discharge Orders: Discharge Order (Routine); Ordered 06/16/20 Ordered By: Andrea SINGH VTE Deep Vein Thrombosis/Pulmonary Embolism Present on Admission: No
[2020-06-17] MEDS ORDERED: LEVOFLOXACIN 750 MG/150 ML BAG IV SCH (09:00)
== END 2020-06-16 11:40 | DRG 871 ==
LOC: ED 11:08 → ICU 15:53 → MEDSUR 06-15 11:00
PROVIDERS: ADMIT Internal Medicine; ATTEND Internal Medicine

== ENCOUNTER 2020-11-27 21:33 | Observation (INO) ==
[2020-11-27] MEDS ORDERED: morphine 4 MG/ML VIAL IV ONE (23:31)
[2020-11-27] MEDS ORDERED: ONDANSETRON 4 MG/2 ML VIAL IV ONE (23:31)
[2020-11-28] MEDS ORDERED: ONDANSETRON 4 MG/2 ML VIAL IV PRN ×2 (02:24→08:58)
--- NOTE | 2020-11-28 02:29 | Emergency Department Note ---
Back Pain HPI General Chief Complaint: Back Pain/Injury Stated Complaint: low back pain Time Seen by Provider: 11/27/20 21:47 Source: patient and EMS Limitations: no limitations History of Present Illness HPI Narrative: Narrative: Patient presents to room T1 for evaluation of right sided flank and chest pain after a fall. This patient is well-known to me. I saw this patient on 11/17/2020 for a fall on the left side at which time she was identified to have an old rib fracture but no acute injuries. Due to the significant amount of discomfort she had she was treated with 3-day course of hydrocodone. The patient returned 2 days ago and at that time was noted to have cough with green sputum production. She was also noted to have persistent pain on the left side. The patient had a prolonged emergency department course which showed possibly some mucous plugging as well as interstitial lung disease which was otherwise not significantly changed on radiology. Clinically I felt the patient did have developing pneumonia and she was given a prescription for doxycycline. She states that she has not filled this prescription but it is at the pharmacy. She reports tonight that she was attempting to transit from a recliner to bed and had a fall and now has severe pain on the right flank and right lateral chest. This pain is constant made worse with any type of movement. She denies any blood in the urine. She denies any worsening shortness of breath. She denies any interval fevers or chills. Related Data Home Medications Medication Instructions Recorded Confirmed albuterol sulfate 90 mcg/actuation 2 puff INHALATION Q4-6HP PRN g 04/09/17 06/23/20 aerosol inhaler paroxetine HCl 10 mg tablet 10 mg PO QDAY 04/09/17 06/13/20 Myrbetriq 50 mg PO QDAY 06/12/20 06/13/20 levothyroxine 175 mcg PO QDAY 06/12/20 06/23/20 omeprazole 20 mg PO QDAY 06/12/20 06/13/20 budesonide [Pulmicort Flexhaler] INHALATION BID 06/23/20 06/23/20 furosemide 1 tab PO QAM 06/23/20 06/23/20 lovastatin 20 mg tablet 20 mg PO QHS tab 06/23/20 06/23/20 methocarbamol 750 mg tablet 750 mg PO Q8H PRN 06/23/20 06/23/20 paroxetine HCl 40 mg tablet 50 mg PO QAM tab 06/23/20 06/23/20 Previous Rx's Medication Instructions Recorded prednisone 20 mg PO BID #10 tab 10/25/20 doxycycline hyclate 100 mg PO BID 10 Days #20 cap 11/27/20 Allergies Allergy/AdvReac Type Severity Reaction Status Date / Time No Known Drug Allergies Allergy Verified 11/27/20 21:45 Review of Systems ROS ROS Narrative: Narrative: All systems ED: reviewed and negative except as stated. [facility] Narrative Patient History Narrative: Narrative: Medical/Surgical/Family History All Active Problems (Updated 11/28/20 @ 02:39 by Fabrizio Ferguson MD) Back pain (Acute) Elevated TSH (Acute) Medication refill (Acute) Strain of lumbar region (Acute) Acute exacerbation of chronic obstructive pulmonary disease (Acute) O2 dependent (Acute) Blunt trauma to chest (Acute) Blunt abdominal trauma (Acute) Pneumonia (Acute) Symptom of leg swelling (Acute) Fracture, ribs (Acute) Dependence on continuous supplemental oxygen (Acute) Altered mental status (Acute) Hypotension (Acute) Acute adrenal crisis (Acute) Positive urine drug screen (Acute) Fracture of lumbar spine (Chronic) Dyspnea (Chronic) Hyperlipidemia (Chronic) Dependence on supplemental oxygen (Chronic) SOB (shortness of breath) (Chronic) Low back pain (Chronic) Bilateral pneumonia (Chronic) Acute respiratory distress (Chronic) COPD (chronic obstructive pulmonary disease) (Chronic) Depression (Chronic) Abnormal mammogram (Chronic) Epidermoid cyst (Chronic) 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) Upper respiratory infection (Chronic) Viral pharyngitis (Chronic) Carpal tunnel syndrome (Chronic) Chronic depression (Chronic) Depressive disorder (Chronic) Obesity (Chronic) Mixed hyperlipidemia (Chronic) Vitamin D deficiency (Chronic) Hypothyroidism (Chronic) Herpes simplex of female genitalia (Chronic) Viral gastroenteritis (Chronic) Urinary incontinence (Chronic) Medical History (Updated 11/28/20 @ 02:39 by Fabrizio Ferguson MD) Abnormal mammogram Acute respiratory distress Bilateral pneumonia Carpal tunnel syndrome CHF (congestive heart failure) Chronic depression COPD (chronic obstructive pulmonary disease) Dependence on continuous supplemental oxygen Dependence on supplemental oxygen Depression Depressive disorder Dyspnea Epidermoid cyst hand Fibrosis of lung Fracture of lumbar spine Herpes simplex of female genitalia Hyperlipidemia Hypothyroidism Interstitial pneumonia Low back pain Mixed hyperlipidemia Obesity Pulmonary fibrosis SOB (shortness of breath) Upper respiratory infection Urinary incontinence Viral gastroenteritis Viral pharyngitis Vitamin D deficiency Surgical History History of cholecystectomy S/P hysterectomy S/P tonsillectomy Family History Father , Age 81 Stroke Pneumonia History of bruising easily Heart disease Mother , Age 80 Malignant neoplastic disease ovarian and blood Hypertensive disorder Uterine cancer History of bruising easily Grandmother , Age 60+ Breast cancer Aunt , Age 40-50 Breast cancer Family/Other History of cancer Cousin Grandfather , Age 50's Heart attack Other Kidney stone Social History Smoking Status: Former smoker Alcohol Intake Frequency: does not drink Substance Use: does not use Exam Narrative Narrative: Narrative: General Limitations: no limitations General appearance: Present alert and in no apparent distress Head Head: Present atraumatic, normocephalic and normal inspection Eye Eye: Present normal appearance and EOMI; Absent conjunctival injection ENT ENT: Present normal exam and mucous membranes moist Neck Neck: Present normal inspection and trachea midline Respiratory Respiratory: Present normal lung sounds bilaterally; Absent respiratory distress Cardiovascular Cardiovascular: Present regular rate, normal rhythm and normal heart sounds Adbominal Abdominal: Present soft; Absent distention, tenderness, guarding and rebound Extremities Extremities: Present normal inspection; Absent tenderness Back Back: Present normal inspection; Absent tenderness Neurological Neurological: Present alert, oriented X3 and CN II-XII intact; Absent motor s ensory deficit Psychiatric Psychiatric: Present normal affect and normal mood Skin Skin: Present warm (WNL) and dry; Absent rash Course Vital Signs Vital signs: Vital Signs Temperature 98.2 F 11/27/20 21:36 Pulse Rate 104 H 11/27/20 21:36 Respiratory Rate 20 11/27/20 21:36 Blood Pressure 139/77 11/27/20 21:36 Pulse Oximetry (%) 95 11/27/20 21:36 Temperature 98.2 F 11/27/20 21:36 Pulse Rate 101 H 11/28/20 01:01 Respiratory Rate 20 11/27/20 21:36 Blood Pressure 133/65 11/28/20 02:01 Pulse Oximetry (%) 93 11/28/20 01:01 [facility] MDM Narrative Medical decision making narrative: Narrative: This patient is well-known to me. She is now back with the another mechanical fall which is caused her to have injuries to the right side CT scan of the chest abdomen pelvis without contrast shows fractures of the right sided rib cage numbers 10 11 and 12. There is no internal injuries identified. The patient's pain was treated symptomatically. I do believe that she is at high risk for further injury should she is charged home. There also be difficulty controlling her pain over the holiday weekend. I discussed the case with the hospitalist. He is agreed admit the patient under observation status for pain management and consideration of placement at a rehab facility. Radiology Data Radiology results reviewed: Yes I reviewed the patient's radiology results. Pulse Oximetry Data Pulse Ox %: 96 Interpretation: room air, normal Discharge Plan Patient/Caregiver Discharge Instructions Pt seen by [employer]ER HELPER/PA only: No Clinical Impression: Blunt trauma to chest, Blunt abdominal trauma, Fracture, ribs Patient Disposition: Xfer As Inpt ([facility]) Follow up with: Nik Hoang ARNP [Primary Care Provider] - Prescriptions: No Action paroxetine HCl 10 mg tablet 10 mg PO QDAY RF: 0 albuterol sulfate [Ventolin HFA] 90 mcg/actuation HFA aerosol inhaler 2 puff INHALATION Q4-6HP PRN (Reason: Shortness Of Breath) RF: 0 methocarbamol 750 mg tablet 750 mg PO Q8H PRN (Reason: Pain) RF: 0 lovastatin 20 mg tablet 20 mg PO QHS RF: 0 paroxetine HCl 40 mg tablet 50 mg PO QAM RF: 0 budesonide inhalation BID RF: 0 furosemide 1 tab PO QAM RF: 0 levothyroxine 175 mcg Tablet 175 mcg PO QDAY RF: 0 omeprazole 20 mg Capsule,Delayed Release(Dr/Ec) 20 mg PO QDAY RF: 0 Myrbetriq 50 mg Tablet Extended Release 24 Hr 50 mg PO QDAY RF: 0 prednisone 20 mg tablet 20 mg PO BID Qty: 10 RF: 0 doxycycline hyclate 100 mg capsule 100 mg PO BID 10 Days Qty: 20 RF: 0
[2020-11-28 03:30] LABS: Basophils # (Auto) 0.04 K/mcL (0.00-0.20); Basophils % (Auto) 0.4 % (0.0-2.0); Eosinophils # (Auto) 0.18 K/mcL (0.00-0.70); Eosinophils % (Auto) 1.6 % (0.0-7.0); Hematocrit 36.5 % (36.0-48.0); Hemoglobin 11.6 g/dL (12.0-15.0); Lymphocytes # (Auto) 1.58 K/mcL (1.50-4.80); Lymphocytes % (Auto) 14.1 % (15.0-49.0); Mean Cell Volume 99.7 fL (80.0-100.0); Mean Corpuscular HGB Conc 31.8 g/dL (31.0-36.0); Mean Platelet Volume 8.9 fL (7.4-10.4); Monocytes # (Auto) 0.56 K/mcL (0.10-0.90); Neutrophils % (Auto) 78.9 % (38.0-78.0); Platelet Count 262 K/mcL (140-440); RBC 3.66 M/mcL (4.00-5.20); Red Cell Distribution Width 13.3 % (11.5-14.5); WBC 11.2 K/mcL (4.5-11.0)
[2020-11-28 03:47] LABS: ALT/SGPT 10 U/L (<40); AST/SGOT 13 U/L (<32); Albumin 3.5 gm/dL (3.2-5.2); Albumin/Globulin Ratio 1.3 (1.0-2.3); Alkaline Phosphatase 141 U/L (39-117); Bilirubin,Direct < 0.2 mg/dL (0-0.3); Bilirubin,Total < 0.2 mg/dL (0.1-1.0); Blood Urea Nitrogen 18 mg/dL (8-23); Calcium 8.9 mg/dL (8.6-10.4); Carbon Dioxide 29 mmol/L (22-30); Chloride 102 mmol/L (96-108); Globulin 2.6 gm/dL (2.2-3.7); Glomerular Filtration Rate 74; Glucose 169 mg/dL (70-105); Lactate Dehydrogenase 256 U/L (135-225); Phosphorous 2.9 mg/dL (2.5-4.5); Triglycerides 106 mg/dL (<150); Uric Acid 6.3 mg/dL (2.5-8.0)
[2020-11-28] MEDS: morphine 2 MG/ML VIAL IV PRN (05:15)
--- NOTE | 2020-11-28 07:04 | Internal Med History&Physical ---
HPI History of Present Illness Patient information: Note initiated : 11/28/20 at 6:59 am Service Date, if different from initiated Date: [] Patient: Rea Norris a 70 y/o F admitted on 11/28/20 for low back pain. Chief Complaint: [] History of present illness: Ms. Norris is a 70 year old F right-sided flank pain and chest pain after fall.Presents to the ED with She was recently in the ED after fall on left side which showed rib fractures.she returned several days later with a green productive cough and persistent left side pain was concerning for pneumonia patient was given antibiotics. She had not yet filled that prescription. She returned again after attempting to move from recliner to bed and fell again on the right side. She now has right-sided rib fractures. She has severe intractable pain and multiple falls and unsafe for home. Patient does have COPD and follows with pulmonology. CT imaging does show bronchiectasis and pulmonary fibrosis as well. Review of Systems: Pertinent positives as above chronic cough and shortness of breath, no change.. Denies headache/fever/chills/nausea/vomiting/chest (other than rib pain) or abdominal pain/diarrhea. Remaining 10 point review of system reviewed negative PFSH PFSH All Active Problems (Updated 11/28/20 @ 02:39 by Fabrizio Ferguson MD) Back pain (Acute) Elevated TSH (Acute) Medication refill (Acute) Strain of lumbar region (Acute) Acute exacerbation of chronic obstructive pulmonary disease (Acute) O2 dependent (Acute) Blunt trauma to chest (Acute) Blunt abdominal trauma (Acute) Pneumonia (Acute) Symptom of leg swelling (Acute) Fracture, ribs (Acute) Dependence on continuous supplemental oxygen (Acute) Altered mental status (Acute) Hypotension (Acute) Acute adrenal crisis (Acute) Positive urine drug screen (Acute) Fracture of lumbar spine (Chronic) Dyspnea (Chronic) Hyperlipidemia (Chronic) Dependence on supplemental oxygen (Chronic) SOB (shortness of breath) (Chronic) Low back pain (Chronic) Bilateral pneumonia (Chronic) Acute respiratory distress (Chronic) COPD (chronic obstructive pulmonary disease) (Chronic) Depression (Chronic) Abnormal mammogram (Chronic) Epidermoid cyst (Chronic) 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) Upper respiratory infection (Chronic) Viral pharyngitis (Chronic) Carpal tunnel syndrome (Chronic) Chronic depression (Chronic) Depressive disorder (Chronic) Obesity (Chronic) Mixed hyperlipidemia (Chronic) Vitamin D deficiency (Chronic) Hypothyroidism (Chronic) Herpes simplex of female genitalia (Chronic) Viral gastroenteritis (Chronic) Urinary incontinence (Chronic) Medical History (Updated 11/28/20 @ 02:39 by Fabrizio Ferguson MD) Abnormal mammogram Acute respiratory distress Bilateral pneumonia Carpal tunnel syndrome CHF (congestive heart failure) Chronic depression COPD (chronic obstructive pulmonary disease) Dependence on continuous supplemental oxygen Dependence on supplemental oxygen Depression Depressive disorder Dyspnea Epidermoid cyst hand Fibrosis of lung Fracture of lumbar spine Herpes simplex of female genitalia Hyperlipidemia Hypothyroidism Interstitial pneumonia Low back pain Mixed hyperlipidemia Obesity Pulmonary fibrosis SOB (shortness of breath) Upper respiratory infection Urinary incontinence Viral gastroenteritis Viral pharyngitis Vitamin D deficiency Surgical History History of cholecystectomy S/P hysterectomy S/P tonsillectomy Family History Father , Age 81 Stroke Pneumonia History of bruising easily Heart disease Mother , Age 80 Malignant neoplastic disease ovarian and blood Hypertensive disorder Uterine cancer History of bruising easily Grandmother , Age 60+ Breast cancer Aunt , Age 40-50 Breast cancer Family/Other History of cancer Cousin Grandfather , Age 50's Heart attack Other Kidney stone Social History (Updated 04/18/17 @ 15:03 by Alfred Herring MD) alcohol intake frequency: does not drink substance use type: does not use MEDS/ALLERGIES Home Medications and Allergies Home Medications Medication Instructions Recorded Confirmed Type albuterol sulfate 90 mcg/actuation 2 puff INHALATION Q4-6HP PRN g 04/09/17 11/28/20 History aerosol inhaler paroxetine HCl 10 mg tablet 10 mg PO QDAY 04/09/17 11/28/20 History Myrbetriq 50 mg PO QDAY 06/12/20 11/28/20 History levothyroxine 175 mcg PO QDAY 06/12/20 11/28/20 History omeprazole 20 mg PO QDAY 06/12/20 11/28/20 History budesonide [Pulmicort Flexhaler] 1 - 2 puff INHALATION BID PRN 06/23/20 11/28/20 History furosemide 20 mg PO QAM 06/23/20 11/28/20 History lovastatin 20 mg tablet 20 mg PO QHS tab 06/23/20 11/28/20 History methocarbamol 750 mg tablet 750 mg PO Q8H PRN 06/23/20 11/28/20 History paroxetine HCl 40 mg tablet 40 mg PO QAM tab 06/23/20 11/28/20 History prednisone 20 mg PO BID #10 tab 10/25/20 11/28/20 Rx doxycycline hyclate 100 mg PO BID 10 Days #20 cap 11/27/20 11/28/20 Rx albuterol sulfate 2.5 mg INHALATION TID PRN 11/28/20 11/28/20 History cyclobenzaprine 10 mg PO TID 11/28/20 11/28/20 History fluticasone propion-salmeterol 1 inh INHALATION BID 11/28/20 11/28/20 History [Advair Diskus] gabapentin 100 mg PO TID 11/28/20 11/28/20 History hydrocodone-acetaminophen 1 - 2 tab PO Q6HP PRN 11/28/20 11/28/20 History losartan 25 mg PO DAILY 11/28/20 11/28/20 History mirtazapine 15 mg PO HS 11/28/20 11/28/20 History Allergies Allergy/AdvReac Type Severity Reaction Status Date / Time No Known Drug Allergies Allergy Verified 11/27/20 21:45 EXAM Constitutional Vitals: Temp Pulse Resp BP Pulse Ox 97.7 F 108 H 24 H 137/66 95 11/28/20 03:37 11/28/20 03:37 11/28/20 03:37 11/28/20 03:37 11/28/20 03:37 Exam: General: Alert, Awake, No acute Distress, obese Eyes/N/T: EOMI, PERRL, Head/Neck: neck supple, normocephalic atraumatic CV: RRR, No murmurs, normal s1/s2 Pulm: fine rales b/l, no wheezing Abd: soft, nontender, +BS x4 Ext: no clubbing/cyanosis, b/l LE edema Neuro: Alert, no focal deficits, moves all extremities, CN 2-12 grossly intact, symmetrical strength b/l upper/lower, sensations intact b/l upper/lower Skin: warm/dry DATA Data Completed and Pending Labs: Labs from last 24 hours 11/28/20 11/28/20 02:43 02:43 WBC 11.2 H RBC 3.66 L Hgb 11.6 L Hct 36.5 MCV 99.7 MCH 31.7 MCHC 31.8 RDW 13.3 Plt Count 262 MPV 8.9 Neut % (Auto) 78.9 H Lymph % (Auto) 14.1 L Stevens % (Auto) 5.0 Eos % (Auto) 1.6 Baso % (Auto) 0.4 Lymph # (Auto) 1.58 Stevens # (Auto) 0.56 Eos # (Auto) 0.18 Baso # (Auto) 0.04 Absolute Neutrophils 8.81 H Sodium 138 Potassium 4.4 Chloride 102 Carbon Dioxide 29 Anion Gap 7.0 L BUN 18 Creatinine 0.8 GFR Calculation 74 Glucose 169 H Uric Acid 6.3 Calcium 8.9 Phosphorus 2.9 Magnesium 2.0 Total Bilirubin < 0.2 Direct Bilirubin < 0.2 GGT 27 AST 13 ALT 10 Alkaline Phosphatase 141 H Lactate Dehydrogenase 256 H Total Protein 6.1 Albumin 3.5 Globulin 2.6 Albumin/Globulin Ratio 1.3 Triglycerides 106 A/P Narrative A/P Narrative: A: *Multiple falls with bilateral rib fractures: *rib pain: *Deconditioning/debility/inability to care for self at home: *COPD(2-3L O2@home)/pulmonary fibrosis/bronchiectasis: *HTN/HLD: *Depression: *GERD: *Hypothyroidism: *Obesity: * P: -Pain control -pt/ot -home IH's, IS -cont home ARB -CM for placement -ppx: Lovenox/home PPI DNR Time Spent With Patient Time: Total time spent is greater than 50% in coordination of care (as documented) at patient's floor/unit and/or counseling patient:
--- NOTE | 2020-11-28 07:17 | XRay Report ---
INDICATION: Ribs FX, SOB TECHNIQUE: AP portable semierect chest x-ray COMPARISON: Previous chest x-rays dated 10/25/2020. 10/13/2020. Previous chest CT scans dated 11/27/2020, 11/26/2020, 11/18/2020 FINDINGS: Lungs:Abnormal lungs with diffuse interstitial disease bilaterally. Right lung is worse than left. Appearance is consistent with interstitial fibrosis. No interval change. No acute focal infiltrate. No parenchymal mass. Heart, vascular:No significant cardiomegaly. Pulmonary vascularity is normal. No pulmonary edema or pulmonary congestion Mediastinum, mainor:No mediastinal widening. No hilar mass Pleura:Elevated right hemidiaphragm, unchanged. No detectable pleural fluid. No evidence for hemothorax or pneumothorax Skeletal:History of bilateral rib fractures. These are not well visualized on AP chest x-ray IMPRESSION: 1. Radiographic appearance consistent with interstitial fibrosis. 2. No acute parenchymal infiltrate or interval change Interpreted and Authenticated by: Harmeet Manzo 11/28/20
--- NOTE | 2020-11-28 08:07 | Cat Scan Report ---
INDICATION: fall, injury R flank COMPARISON: Previous chest CT scan dated 11/26/2020. Previous chest, abdomen, pelvis CT scan dated 11/18/2020. Comparison also made with previous chest CT scan dated 05/17/2020, 12/23/2016. Comparison made with previous chest, abdomen, pelvis CT scan dated 06/03/2017 TECHNIQUE: Axial images were obtained through the chest,abdomen and pelvis. Sagittally and coronally reformatted images. Intravenous contrast material was not administered. FINDINGS: Examination was initially interpreted by [facility] Chest CT: Lungs:Lungs are diffusely abnormal consistent with pulmonary fibrosis. There is no interval change. Again demonstrated is extensive bronchiectasis and reticular abnormality. There is a 9 mm noncalcified right upper lobe nodule, image 29. This was present in 2017 and is benign. No new parenchymal nodules. No parenchymal consolidation. There is no pulmonary contusion or acute pneumonia Mediastinum:No mediastinal hematoma. No aortic enlargement. There is a small hiatal hernia Heart:No significant cardiomegaly. No pericardial effusion Pleura:There is no pneumothorax or hemothorax Axilla, supraclavicular regions, chest wall:No chest wall hematoma. No acute or focal abnormality. Musculoskeletal:There are nonacute bilateral rib fractures. There are acute nondisplaced fractures of the right 10th, 11th, and 12th ribs. No acute thoracic compression fracture Abdomen/Pelvis: Liver:Liver is negative to the limits of noncontrast enhanced examination. No acute abnormality. Gallbladder, bilary:Surgical clips in the gallbladder fossa. No dilated bile ducts Spleen:Spleen is negative. No perisplenic hemorrhage Pancreas:No pancreatic mass. No peripancreatic abnormality. No retroperitoneal abnormality Adrenal glands:Negative Kidneys, ureters, bladder: No detectable mass. No hydronephrosis or calculi. No perinephric abnormality No hydroureter. No ureteral stones Bladder is grossly negative. No bladder calculi. No bladder rupture Gastrointestinal:No detectable colonic mass. There is no diverticulitis. Small bowel is negative. No mechanical small bowel obstruction. Stomach and duodenum are within normal limits Appendix: The appendix is not well visualized. No evidence for appendicitis Vascular:Mild calcification of the abdominal aorta. No abdominal aortic aneurysm Lymphatic:No pathologic retroperitoneal or mesenteric adenopathy Mesentery, peritoneum:No free intraperitoneal fluid. No intra-abdominal abscess. There is no hemoperitoneum or pneumoperitoneum Reproductive:Probable hysterectomy. No adnexal mass Musculoskeletal:Subtle fracture of the right L1 transverse process. Other lumbar transverse processes are negative. There are nonacute compression fractures of the L1, L2, L5 vertebral bodies. No acute lumbar compression fracture. Sacrum is negative. Pelvis is negative. No fracture. Hips are negative. No anterior abdominal wall or inguinal hernia. No significant flank hematoma or soft tissue abnormality IMPRESSION: 1. Acute nondisplaced fractures of the right 10th, 11th, 12th ribs. Acute fracture of the right L1 transverse process 2. Chronic lung disease consistent with pulmonary fibrosis. No acute abnormality. No pneumothorax or hemothorax 3. No acute intra-abdominal abnormality The exam was performed using radiation dose optimization techniques including, but not limited to, automated exposure control, adjustment of the mA and/or kV according to patient size and use of iterative reconstruction technique. Interpreted and Authenticated by: Harmeet Manzo 11/28/20
[2020-11-28 08:34] LABS: Band Neutrophils % 3 % (0-10); Eosinophils % (Manual) 2 % (0-7); Lymphocytes % 13 % (15-49); Monocytes % (Manual) 6 % (1-12); Platelet Estimate NORMAL (Normal); RBC Morphology NORMAL (Normal); Segmented Neutrophils % 76 % (38-78)
[2020-11-28] MEDS ORDERED: METHOCARBAMOL 750 MG TABLET PO PRN (08:56)
[2020-11-28] MEDS ORDERED: POTASSIUM CHLORIDE 40 MEQ in DEXTROSE 5% IN WATER 500 ML IV PRN (08:58)
[2020-11-28] MEDS ORDERED: SENNOSIDES 1 TABLET PO PRN (08:58)
[2020-11-28] MEDS ORDERED: MAGNESIUM SULFATE 2 GM/50 ML BAG IV PRN (08:58)
[2020-11-28] MEDS ORDERED: ACETAMINOPHEN 325 MG TABLET PO PRN (08:58)
[2020-11-28] MEDS ORDERED: POTASSIUM CHLORIDE 20 MEQ TABLET PO PRN ×2 (08:58)
[2020-11-28] MEDS ORDERED: POLYETHYLENE GLYCOL 3350 17 GM PACKET PO PRN (08:58)
[2020-11-28] MEDS ORDERED: IPRATROPIUM/ALBUTEROL 3 ML AMPUL.NEB NEB PRN (08:58)
[2020-11-28] MEDS ORDERED: PAROXETINE HCL 10 MG PO SCH (09:00)
[2020-11-28] MEDS ORDERED: CYCLOBENZAPRINE 10 MG TABLET PO SCH (09:00)
[2020-11-28] MEDS: FLUTICASONE/SALMETEROL 250/50 INHALER #14 INH SCH ×2 (09:08→20:44)
[2020-11-28] MEDS ORDERED: BUDESONIDE INH PRN (09:12)
[2020-11-28] MEDS: PARoxetine 20 MG TABLET PO SCH (09:25)
[2020-11-28] MEDS: LOSARTAN 25 MG TABLET PO SCH (09:25)
[2020-11-28] MEDS: GABAPENTIN 100 MG CAPSULE PO SCH ×3 (09:25→20:44)
[2020-11-28] MEDS: FUROSEMIDE 20 MG TABLET PO SCH (09:26)
[2020-11-28] MEDS: OMEPRAZOLE 20 MG CAPSULE PO SCH (09:26)
[2020-11-28] MEDS: DOCUSATE SODIUM 100 MG CAPSULE PO SCH ×2 (09:26→20:44)
[2020-11-28] MEDS: ENOXAPARIN 40 MG/0.4 ML SYRINGE SQ SCH (09:27)
[2020-11-28] MEDS: HYDROcodone/APAP 5/325MG TABLET PO PRN ×3 (09:33→20:42)
[2020-11-28] MEDS ORDERED: CYCLOBENZAPRINE 10 MG TABLET PO PRN (11:45)
[2020-11-28] MEDS: 0.9 % SODIUM CHLORIDE 10 ML SYRINGE IV SCH ×2 (13:28→21:12)
[2020-11-28] MEDS: MIRTAZAPINE 15 MG TABLET PO SCH (20:43)
[2020-11-28] MEDS: SIMVASTATIN 10 MG TABLET PO SCH (20:44)
[2020-11-29] MEDS: HYDROcodone/APAP 5/325MG TABLET PO PRN ×5 (04:20→20:33)
[2020-11-29] MEDS: 0.9 % SODIUM CHLORIDE 10 ML SYRINGE IV SCH ×3 (06:29→20:35)
[2020-11-29] MEDS: FLUTICASONE/SALMETEROL 250/50 INHALER #14 INH SCH ×2 (07:37→20:34)
[2020-11-29] MEDS: ENOXAPARIN 40 MG/0.4 ML SYRINGE SQ SCH (08:13)
[2020-11-29] MEDS: GABAPENTIN 100 MG CAPSULE PO SCH ×3 (08:14→20:34)
[2020-11-29] MEDS: PARoxetine 20 MG TABLET PO SCH (08:14)
[2020-11-29] MEDS: LEVOTHYROXINE 75 MCG TABLET PO SCH (08:14)
[2020-11-29] MEDS: LOSARTAN 25 MG TABLET PO SCH (08:14)
[2020-11-29] MEDS: OMEPRAZOLE 20 MG CAPSULE PO SCH (08:14)
[2020-11-29] MEDS: FUROSEMIDE 20 MG TABLET PO SCH (08:14)
[2020-11-29] MEDS: LEVOTHYROXINE 100 MCG TABLET PO SCH (08:14)
[2020-11-29] MEDS: DOCUSATE SODIUM 100 MG CAPSULE PO SCH ×2 (08:14→20:34)
[2020-11-29] MEDS: morphine 2 MG/ML VIAL IV PRN ×2 (14:34→22:57)
--- NOTE | 2020-11-29 15:31 | Internal Med Progress Note ---
SUBJECTIVE Subjective Patient information: Note initiated : 11/29/20 at 3:20 pm Service Date, if different from initiated Date: [] Patient: Rea Norris a 70 y/o F admitted on 11/28/20 for low back pain. Chief Complaint: [falls with rib fracture] History of present illness: Ms. Norris is a 70 year old F right-sided flank pain and chest pain after fall.Presents to the ED with She was recently in the ED after fall on left side which showed rib fractures.she returned several days later with a green productive cough and persistent left side pain was concerning for pneumonia patient was given antibiotics. She had not yet filled that prescription. She returned again after attempting to move from recliner to bed and fell again on the right side. She now has right-sided rib fractures. She has severe intractable pain and multiple falls and unsafe for home. Patient does have COPD and follows with pulmonology. CT imaging does show bronchiectasis and pulmonary fibrosis as well. 11/29/20: afebrile. On 2L supplemental oxygen. c/o 8/10 sharp upper back pain. Severity of shortness of breath at baseline. Constitutional Vitals: Vital Signs Temp Pulse Resp BP Pulse Ox 36.8 C 100 H 18 123/73 93 11/29/20 11:40 11/29/20 11:40 11/29/20 11:40 11/29/20 11:40 11/29/20 11:40 Period Temp Pulse Resp BP Sys/F[place]man Pulse Ox Last 24 Hr 36.4 C-36.9 C 83-100 18-22 121-143/64-81 93-96 Intake and Output 11/29/20 11/29/20 11/29/20 05:59 13:59 21:59 Intake Total 480 590 Output Total 701 Balance 480 -111 Intake & Output: Intake & Output 11/29/20 11/29/20 11/29/20 05:59 13:59 21:59 Intake Total 480 590 Output Total 701 Balance 480 -111 Intake: Oral 480 590 Output: Void Amount 700 # of times incontinent of urine 1 Other: Meal Lunch Percent of Meal Consumed 100% Feeding Ability Independent Urine Appearance Clear Urine Color Bright Yellow Urine Odor Normal # Voids 1 General appearance: cooperative and no acute distress Head Head exam: Present atraumatic and normocephalic Eye Eye exam: Present EOMI and PERRL ENT ENT exam: Present mucous membranes moist, normal exam and normal external ear exam Additional comments: Nasal cannula in place. Neck Neck exam: Present normal inspection; Absent lymphadenopathy, tenderness and thyromegaly Respiratory Respiratory exam: Absent accessory muscle use, respiratory distress and wheezes Cardiovascular Cardiovascular exam: Present normal rate and rhythm; Absent JVD GI/Abdominal GI/Abdominal exam: Present normal bowel sounds and soft; Absent organomegaly and tenderness Extremities Exam Extremities exam: Present full ROM, normal capillary refill and normal in spection; Absent tenderness Back Exam Additional comments: Abdominal binder in place. Upper back tenderness to palpation. Neurological Exam Neurological exam: Present alert, CN II-XII intact and oriented X3; Absent motor sensory deficit Psychiatric Psychiatric exam: Present normal affect and normal mood; Absent anxious and depressed Skin Skin exam: Present dry and intact OBJ DATA Labs CBC & Chem 7: 11/28/20 02:43 11/28/20 02:43 Labs: Abnormal Lab Results 11/28/20 11/28/20 11/28/20 02:43 02:43 02:43 WBC RBC Hgb Neut % (Auto) Lymph % (Auto) Lymphocytes % 13 L Absolute Neutrophils Anion Gap 7.0 L Glucose 169 H Alkaline Phosphatase 141 H Lactate Dehydrogenase 256 H C-Reactive Protein 1.00 H 11/28/20 02:43 WBC 11.2 H RBC 3.66 L Hgb 11.6 L Neut % (Auto) 78.9 H Lymph % (Auto) 14.1 L Lymphocytes % Absolute Neutrophils 8.81 H Anion Gap Glucose Alkaline Phosphatase Lactate Dehydrogenase C-Reactive Protein Meds: Medications Acetaminophen (Acetaminophen 325 Mg Tablet) 650 mg PO Q6HP PRN PRN Reason: PAIN/FEVER > 101 Hydrocodone Bitart/Acetaminophen (Hydrocodone/Apap 5/325mg Tablet) 1 - 2 tab PO Q4-6HP PRN; Protocol PRN Reason: Pain Last Admin: 11/29/20 12:23 Dose: 2 tab Documented by: Albuterol/Ipratropium (Ipratropium/Albuterol 3 Ml Ampul.Neb) 3 ml NEB Q4HP PRN PRN Reason: Shortness Of Breath Last Admin: 11/28/20 21:01 Dose: 3 ml Documented by: Cyclobenzaprine HCl (Cyclobenzaprine 10 Mg Tablet) 10 mg PO TIDP PRN PRN Reason: Muscle Spasm Cyclobenzaprine HCl (Cyclobenzaprine 10 Mg Tablet) 5 mg PO TIDP PRN PRN Reason: Muscle Spasm Docusate Sodium (Docusate Sodium 100 Mg Capsule) 100 mg PO BID [facility] Last Admin: 11/29/20 08:14 Dose: 100 mg Documented by: Enoxaparin Sodium (Enoxaparin 40 Mg/0.4 Ml Syringe) 40 mg SQ DAILY [facility] Last Admin: 11/29/20 08:13 Dose: 40 mg Documented by: Furosemide (Furosemide 20 Mg Tablet) 20 mg PO DAILY [facility] Last Admin: 11/29/20 08:14 Dose: 20 mg Documented by: Gabapentin (Gabapentin 100 Mg Capsule) 100 mg PO TID [facility] Last Admin: 11/29/20 14:08 Dose: 100 mg Documented by: Potassium Chloride 40 meq/ (Dextrose) 520 mls @ 130 mls/hr IV UD PRN PRN Reason: Potassium < 3 Magnesium Sulfate (Magnesium Sulfate) 2 gm in 50 mls @ 50 mls/hr IV UD PRN PRN Reason: Magnesium </= 1.6 Levothyroxine Sodium (Levothyroxine 100 Mcg Tablet) 100 mcg PO ACB [facility] Last Admin: 11/29/20 08:14 Dose: 100 mcg Documented by: Levothyroxine Sodium (Levothyroxine 75 Mcg Tablet) 75 mcg PO ACB [facility] Last Admin: 11/29/20 08:14 Dose: 75 mcg Documented by: Losartan Potassium (Losartan 25 Mg Tablet) 25 mg PO DAILY [facility] Last Admin: 11/29/20 08:14 Dose: 25 mg Documented by: Methocarbamol (Methocarbamol 750 Mg Tablet) 750 mg PO Q8HP PRN PRN Reason: Pain Mirtazapine (Mirtazapine 15 Mg Tablet) 15 mg PO HS [facility] Last Admin: 11/28/20 20:43 Dose: 15 mg Documented by: Morphine Sulfate (Morphine 2 Mg/Ml Vial) 2 mg IV Q2HP PRN; Protocol PRN Reason: Per Pain Protocol Last Admin: 11/29/20 14:34 Dose: 2 mg Documented by: Non-Formulary Medication (Pirfenidone [Esbriet]) 267 mg PO TID [facility] Omeprazole (Omeprazole 20 Mg Capsule) 20 mg PO ACB [facility] Last Admin: 11/29/20 08:14 Dose: 20 mg Documented by: Ondansetron HCl (Ondansetron 4 Mg/2 Ml Vial) 4 mg IV Q4HP PRN PRN Reason: Nausea And Vomiting Paroxetine HCl (Paroxetine 20 Mg Tablet) 50 mg PO DAILY [facility] Last Admin: 11/29/20 08:14 Dose: 50 mg Documented by: Budesonide ( Pulmicort Flexhaler) 90 Mcg/Actuation 0 dose INH BIDP PRN PRN Reason: Shortness Of Breath Or Wheezing Mirabegron [ Myrbetriq] 50 Mg Er Tablet 1 dose PO DAILY [facility] Last Admin: 11/29/20 08:13 Dose: 1 dose Documented by: Polyethylene Glycol (Polyethylene Glycol 3350 17 Gm Packet) 17 gm PO DAILYP PRN PRN Reason: Constipation Potassium Chloride (Potassium Chloride 20 Meq Tablet) 40 meq PO UD PRN PRN Reason: Potssium is 3-3.5 Potassium Chloride (Potassium Chloride 20 Meq Tablet) 40 meq PO UD PRN PRN Reason: Potassium < 3 Fluticasone/Salmeterol (Fluticasone/Salmeterol 250/50 Inhaler #14) 1 puff INH BID [facility] Last Admin: 11/29/20 07:37 Dose: Not Given Documented by: Senna (Sennosides 1 Tablet) 2 tab PO DAILYP PRN PRN Reason: Constipation Simvastatin (Simvastatin 10 Mg Tablet) 10 mg PO HS [facility] Last Admin: 11/28/20 20:44 Dose: 10 mg Documented by: Sodium Chloride (0.9 % Sodium Chloride 10 Ml Syringe) 10 ml IV Q8 [facility] Last Admin: 11/29/20 12:23 Dose: 10 ml Documented by: A/P Assessment and plan (1) Fracture, ribs: Status: Acute (2) O2 dependent: Status: Acute (3) COPD (chronic obstructive pulmonary disease): Status: Chronic Qualifiers: COPD type: COPD with acute lower respiratory infection Qualified Code(s): J44.0 - Chronic obstructive pulmonary disease with (acute) lower respiratory infection (4) Fibrosis of lung: Status: Chronic (5) Back pain: Status: Acute (6) Hypothyroidism: Status: Chronic (7) Depression: Status: Chronic (8) Mixed hyperlipidemia: Status: Chronic (9) Essential (primary) hypertension: Status: Acute Narrative A/P Narrative: 1. Multiple ribs fractures secondary to falls: Observation med surg Flexeril 5mg PO TID PRN muscle spasm Morphine IV PRN severe pain [place] PRN moderate pain PT OT evaluation and treatment for placement planning 2. h/o COPD and pulmonary fibrosis on home oxygen therapy: Baseline oxygen requirement 2-3L, currently on 2L Continue supplemental oxygen therapy Pulmicort DuoNEB 3. Hypothyroidism: Continue oral thyroid replacement therapy 4. Depression: Mirtazapine Paroxetine 5. Essential HTN: Currently normotensive Continue Losartan for now 6. Mixed dyslipidemia: Continue statin therapy GI ppx: oral PPI DVT ppx: Lovenox Code status: DNI DNR Prognosis: stable Disposition: observation med surg; PT OT evaluation and treatment for placement planning Time Spent With Patient Time: Total time spent is greater than 50% in coordination of care (as document ed) at patient's floor/unit and/or counseling patient: Total time spent with greater than 50% in coordination of care (as documented) at patient's floor/unit and/or counseling patient:: 15 - 24 minutes
[2020-11-29] MEDS: CYCLOBENZAPRINE 10 MG TABLET PO PRN (16:10)
[2020-11-29] MEDS: SIMVASTATIN 10 MG TABLET PO SCH (20:34)
[2020-11-29] MEDS: MIRTAZAPINE 15 MG TABLET PO SCH (20:34)
[2020-11-30] MEDS: HYDROcodone/APAP 5/325MG TABLET PO PRN ×4 (01:36→13:52)
[2020-11-30] MEDS: LEVOTHYROXINE 75 MCG TABLET PO SCH (06:34)
[2020-11-30] MEDS: LEVOTHYROXINE 100 MCG TABLET PO SCH (06:34)
[2020-11-30] MEDS: CYCLOBENZAPRINE 10 MG TABLET PO PRN (06:34)
[2020-11-30] MEDS: OMEPRAZOLE 20 MG CAPSULE PO SCH (06:34)
[2020-11-30] MEDS: 0.9 % SODIUM CHLORIDE 10 ML SYRINGE IV SCH (06:34)
[2020-11-30 07:35] LABS: Basophils # (Auto) 0.06 K/mcL (0.00-0.20); Basophils % (Auto) 0.8 % (0.0-2.0); Eosinophils # (Auto) 0.68 K/mcL (0.00-0.70); Eosinophils % (Auto) 8.5 % (0.0-7.0); Hematocrit 35.9 % (36.0-48.0); Hemoglobin 11.6 g/dL (12.0-15.0); Lymphocytes # (Auto) 2.69 K/mcL (1.50-4.80); Lymphocytes % (Auto) 33.7 % (15.0-49.0); Mean Cell Volume 98.6 fL (80.0-100.0); Mean Corpuscular HGB Conc 32.3 g/dL (31.0-36.0); Mean Platelet Volume 9.3 fL (7.4-10.4); Monocytes # (Auto) 0.72 K/mcL (0.10-0.90); Platelet Count 263 K/mcL (140-440); RBC 3.64 M/mcL (4.00-5.20)
[2020-11-30] MEDS: PARoxetine 20 MG TABLET PO SCH (08:07)
[2020-11-30] MEDS: FUROSEMIDE 20 MG TABLET PO SCH (08:07)
[2020-11-30] MEDS: LOSARTAN 25 MG TABLET PO SCH (08:07)
[2020-11-30] MEDS: ENOXAPARIN 40 MG/0.4 ML SYRINGE SQ SCH (08:08)
[2020-11-30] MEDS: DOCUSATE SODIUM 100 MG CAPSULE PO SCH (08:08)
[2020-11-30] MEDS: GABAPENTIN 100 MG CAPSULE PO SCH (08:08)
[2020-11-30] MEDS: FLUTICASONE/SALMETEROL 250/50 INHALER #14 INH SCH (08:08)
[2020-11-30 08:29] LABS: Blood Urea Nitrogen 15 mg/dL (8-23); Carbon Dioxide 28 mmol/L (22-30); Chloride 99 mmol/L (96-108); Glomerular Filtration Rate 87; Glucose 86 mg/dL (70-105)
[2020-11-30] MEDS ORDERED: LEVOTHYROXINE 100 MCG TABLET PO SCH (09:00)
--- NOTE | 2020-11-30 10:59 | Discharge Summary ---
Discharge Provider Provider Patient information: Note initiated : 11/30/20 at 10:56 am Service Date, if different from initiated Date: [] Patient: Rea Norris a 70 y/o F admitted on 11/28/20 for low back pain. Chief Complaint: [fall with multiple ribs fracture] History of present illness: Ms. Norris is a 70 year old F right-sided flank pain and chest pain after fall.Presents to the ED with She was recently in the ED after fall on left side which showed rib fractures.she returned several days later with a green productive cough and persistent left side pain was concerning for pneumonia patient was given antibiotics. She had not yet filled that prescription. She returned again after attempting to move from recliner to bed and fell again on the right side. She now has right-sided rib fractures. She has severe intractable pain and multiple falls and unsafe for home. Patient does have COPD and follows with pulmonology. CT imaging does show bronchiectasis and pulmonary fibrosis as well. 11/29/20: afebrile. On 2L supplemental oxygen. c/o 8/10 sharp upper back pain. Severity of shortness of breath at baseline. Date of admission: 11/28/20 03:37 Discharge date: 11/30/20 Primary care physician: ANN Conklin Consults: 11/28/20 Consult to Physician [CONS] Stat Comment: Consulting Provider: Rogerio Smith Reason For Exam: Physician to Consult Discharge Meds Discharge Medications Home Medications albuterol sulfate 90 mcg/actuation aerosol inhaler 2 puff INHALATION Q4-6HP PRN g 04/09/17 [History Confirmed 11/28/20 Last Taken 11/26/20 08:00 2 puffs] paroxetine HCl 10 mg tablet 10 mg PO QDAY 04/09/17 [History Confirmed 11/28/20 Last Taken 11/26/20 08:00 10 mg] Myrbetriq 50 mg PO QDAY 06/12/20 [History Confirmed 11/28/20 Last Taken 11/26/20 08:00 50 mg] omeprazole 20 mg PO QDAY 06/12/20 [History Confirmed 11/28/20 Last Taken 11/26/20 08:00 20 mg] budesonide [Pulmicort Flexhaler] 1 - 2 puff INHALATION BID PRN 06/23/20 [History Confirmed 11/28/20 Last Taken 11/26/20] furosemide 20 mg PO QAM 06/23/20 [History Confirmed 11/28/20 Last Taken 11/26/20 08:00 20 mg] lovastatin 20 mg tablet 20 mg PO QHS tab 06/23/20 [History Confirmed 11/28/20 Last Taken 11/26/20 08:00 20 mg] methocarbamol 750 mg tablet 750 mg PO Q8H PRN 06/23/20 [History Confirmed 11/28/20 Last Taken 11/27/20 750 mg] paroxetine HCl 40 mg tablet 40 mg PO QAM tab 06/23/20 [History Confirmed 11/28/20 Last Taken 11/26/20 08:00 40 mg] Esbriet 267 mg PO TID 11/28/20 [History Confirmed 11/28/20 Last Taken Unknown] albuterol sulfate 2.5 mg INHALATION TID PRN 11/28/20 [History Confirmed 11/28/20 Last Taken 11/27/20 1 Inhalation] cyclobenzaprine 10 mg PO TID 11/28/20 [History Confirmed 11/28/20 Last Taken 11/27/20 10 mg] fluticasone propion-salmeterol [Advair Diskus] 1 inh INHALATION BID 11/28/20 [History Confirmed 11/28/20 Last Taken 11/27/20 1 Inhalation] gabapentin 100 mg PO TID 11/28/20 [History Confirmed 11/28/20 Last Taken 11/27/20 100 mg] hydrocodone-acetaminophen 1 - 2 tab PO Q6HP PRN 11/28/20 [History Confirmed 11/28/20 Last Taken 11/27/20 2 tabs] levothyroxine 100 mcg PO QDAY 11/28/20 [History Confirmed 11/28/20 Last Taken Unknown] losartan 25 mg PO DAILY 11/28/20 [History Confirmed 11/28/20 Last Taken 11/27/20 25 mg] mirtazapine 15 mg PO HS 11/28/20 [History Confirmed 11/28/20 Last Taken 11/26/20 15 mg] COURSE Hospital Course Hospital course: Patient was admitted for observation service on 11/28/20 after sustaining fall with multiple ribs fractures. No surgery was indicated and medications including Flexeril, Johnson, and Morphine were all provided for symptoms relief. Physical and occupational therapists were consulted and recommended snf placement. Patient remained clinically stable, and was accepted by [facility] on 11/30/20. Rx of Johnson given to patient. All questions were answered prior to patient being physically discharged. Discharge diagnosis: multiple ribs fractures Time Spent with Patient Time attestation: Total time spent providing and/or coordinating discharge s ervices: Time spent: Less than 30 minutes EXAM Constitutional Vitals: Temp Pulse Resp BP Pulse Ox 36.4 C 88 20 116/63 95 11/30/20 08:00 11/30/20 08:00 11/30/20 08:00 11/30/20 08:00 11/30/20 08:00 General appearance: cooperative and no acute distress Head Head exam: Present atraumatic and normocephalic Eye Eye exam: Present EOMI and PERRL ENT ENT exam: Present mucous membranes moist, normal exam and normal external ear exam Neck Neck exam: Present normal inspection; Absent lymphadenopathy, tenderness and thyromegaly Respiratory Respiratory exam: Absent accessory muscle use, respiratory distress and wheezes Cardiovascular Cardiovascular exam: Present normal rate and rhythm; Absent JVD GI/Abdominal GI/Abdominal exam: Present normal bowel sounds and soft; Absent organomegaly and tenderness Extremities Exam Extremities exam: Present full ROM, normal capillary refill and normal inspection; Absent tenderness Additional comments: Back tenderness to palpation Neurological Exam Neurological exam: Present alert, CN II-XII intact and oriented X3; Absent motor sensory deficit Psychiatric Psychiatric exam: Present normal affect and normal mood; Absent anxious and depressed Skin Skin exam: Present dry and intact Discharge Data Data Completed and Pending Labs on day of discharge: Labs from last 24 hours 11/30/20 11/30/20 06:25 06:25 WBC 8.0 RBC 3.64 L Hgb 11.6 L Hct 35.9 L MCV 98.6 MCH 31.9 MCHC 32.3 RDW 13.0 Plt Count 263 MPV 9.3 Neut % (Auto) 48.0 Lymph % (Auto) 33.7 Hamilton % (Auto) 9.0 Eos % (Auto) 8.5 H Baso % (Auto) 0.8 Lymph # (Auto) 2.69 Hamilton # (Auto) 0.72 Eos # (Auto) 0.68 Baso # (Auto) 0.06 Absolute Neutrophils 3.83 Sodium 137 Potassium 4.2 Chloride 99 Carbon Dioxide 28 Anion Gap 10.0 BUN 15 Creatinine 0.7 GFR Calculation 87 Glucose 86 Ionized Calcium [place] 1.05 L Discharge Plan Patient/Caregiver Discharge Instructions Activity: increase activity as tolerated Diet: Regular Diet Activity Restrictions/Additional Instructions: Increased physical activities as tolerated Prescriptions: Continued paroxetine HCl 10 mg tablet 10 mg PO QDAY RF: 0 albuterol sulfate [Ventolin HFA] 90 mcg/actuation HFA aerosol inhaler 2 puff INHALATION Q4-6HP PRN (Reason: Shortness Of Breath) RF: 0 methocarbamol 750 mg tablet 750 mg PO Q8H PRN (Reason: Pain) RF: 0 lovastatin 20 mg tablet 20 mg PO QHS RF: 0 paroxetine HCl 40 mg tablet 40 mg PO QAM RF: 0 budesonide 1 - 2 puff inhalation BID PRN (Reason: Shortness Of Breath Or Wheezing) RF: 0 furosemide 20 mg PO QAM RF: 0 omeprazole 20 mg Capsule,Delayed Release(Dr/Ec) 20 mg PO QDAY RF: 0 Myrbetriq 50 mg Tablet Extended Release 24 Hr 50 mg PO QDAY RF: 0 cyclobenzaprine 10 mg tablet 10 mg PO TID RF: 0 fluticasone propion-salmeterol [Advair Diskus] 250-50 mcg/dose blister with device 1 inh INHALATION BID RF: 0 albuterol sulfate 2.5 mg /3 mL (0.083 %) solution for nebulization 2.5 mg inhalation TID PRN (Reason: Shortness Of Breath Or Wheezing) RF: 0 hydrocodone-acetaminophen 5-325 mg tablet 1 - 2 tab PO Q6HP PRN (Reason: Pain) RF: 0 losartan 25 mg tablet 25 mg PO DAILY RF: 0 mirtazapine 15 mg tablet 15 mg PO HS RF: 0 gabapentin 100 mg capsule 100 mg PO TID RF: 0 Esbriet 267 mg Tablet 267 mg PO TID RF: 0 levothyroxine 100 mcg Tablet 100 mcg PO QDAY RF: 0 Discontinued prednisone 10 mg PO DAILY RF: 0 levothyroxine 100 mcg Tablet 100 mcg PO DAILY RF: 0 prednisone 20 mg Tablet 20 mg PO BID RF: 0 Follow Up Plan Follow up with: Nik Hoang ARNP [Primary Care Provider] - Patient Disposition: [facility] Hospital Course: Patient was admitted for observation service on 11/28/20 after sustaining fall with multiple ribs fractures. No surgery was indicated and medications including Flexeril, Johnson, and Morphine were all provided for symptoms relief. Physical and occupational therapists were consulted and recommended snf placement. Patient remained clinically stable, and was accepted by [facility] on 11/30/20. Rx of Johnson given to patient. All questions were answered prior to patient being physically discharged. Rehab Potential: Good Overall status at discharge: patient is progressing back to baseline Discharge Orders: Discharge Order (Routine); Ordered 11/30/20 Ordered By: Federico Cohn
== END 2020-11-30 14:30 ==
LOC: ED 21:33 → MEDSUR 21:33
PROVIDERS: ADMIT Internal Medicine; ATTEND Internal Medicine